=== PATIENT | female | born 1955 | race Caucasian/White ===

== ENCOUNTER → 2017-01-10 | Outpatient (CLI) | payer MEDICARE ==
--- NOTE | 2017-01-10 10:36 | XR ---
EXAMINATION TYPE: XR lumbar spine with bend/flex , 5 VIEWS DATE OF EXAM ORDERED: 01/10/2017 HISTORY: M54.5 low back pain. COMPARISON: None. FINDINGS: There is a moderate dextroscoliosis. Vertebral body height and alignment are maintained. There is no spondylolysis or spondylolisthesis. T here is disc space loss and hypertrophic spondylosis at L5-S1. The pedicles are intact. There is mild facet arthropathy at L5-S1. IMPRESSION: 1. NO ACUTE OSSEOUS LESION. 2. MODERATE DEXTROSCOLIOSIS. 3. DEGENERATIVE CHANGE.
[2017-01-10 10:49] LABS: Calcium 9.3 mg/dL (8.4-10.2)
[2017-01-10 12:24] LABS: Hemoglobin A1C 5.5 % (4.2-6.1)
[2017-01-12 05:03] LABS: Vitamin E (Alpha Tocopherol) 1688 ug/dL (500-1800)
== END | disposition home or self-care (01) ==
LOC: LABWHC1 09:26
PROVIDERS: ATTEND Psychiatry & Neurology Pain Medicine
DX: M47.816 Spondylosis without myelopathy or radiculopathy, lumbar region (principal); M41.9 Scoliosis, unspecified; G89.4 Chronic pain syndrome; I63.9 Cerebral infarction, unspecified; Z79.899 Other long term (current) drug therapy
CPT/HCPCS: 36415; 72114; 82306; 82310; 82550; 83036; 83519; 83735; 84207; 84425; 84446; 84590; 84591; 84597

== ENCOUNTER → 2017-03-27 | Outpatient (CLI) | payer MEDICARE | LOC: LABWHC1 12:03 | PROVIDERS: ATTEND Psychiatry & Neurology Pain Medicine | DX: Z01.810 Encounter for preprocedural cardiovascular examination (principal) | CPT/HCPCS: 36415; 93005 ==

== ENCOUNTER 2018-03-14 11:55 | Inpatient (IN) | payer MEDICARE ==
[2018-03-14 12:55] LABS: Basophils % (A) 0 %; Eosinophils # (A) 0.1 k/uL (0-0.7); Eosinophils % (A) 1 %; HCT 49.5 % (34.0-46.0); HGB 16.2 gm/dL (11.4-16.0); Lymphocytes # (A) 0.9 k/uL (1.0-4.8); Lymphocytes % (A) 10 %; MCH 28.4 pg (25.0-35.0); MCHC 32.8 g/dL (31.0-37.0); MCV 86.6 fL (80.0-100.0); Mean Platelet Volume 6.8; Monocytes # (A) 0.5 k/uL (0-1.0); Monocytes % (A) 6 %; Neutrophils # (A) 6.8 k/uL (1.3-7.7); Neutrophils % (A) 82 %; Platelet Count 228 k/uL (150-450); RBC 5.71 m/uL (3.80-5.40); RDW 13.9 % (11.5-15.5); WBC 8.3 k/uL (3.8-10.6)
[2018-03-14 13:11] LABS: ALT 23 U/L (9-52); AST 48 U/L (14-36); Albumin 4.4 g/dL (3.5-5.0); Alkaline Phosphatase 118 U/L (38-126); Amylase 48 U/L (30-110); Anion Gap 16 mmol/L; Blood Urea Nitrogen 21 mg/dL (7-17); Calcium 10.3 mg/dL (8.4-10.2); Carbon Dioxide 25 mmol/L (22-30); Chloride 100 mmol/L (98-107); Glucose 106 mg/dL (74-99); Lipase 55 U/L (23-300); Potassium 3.7 mmol/L (3.5-5.1); Sodium 141 mmol/L (137-145); Total Bilirubin 1.1 mg/dL (0.2-1.3); Total Protein 7.4 g/dL (6.3-8.2)
[2018-03-14] MEDS ORDERED: SODIUM CHLORIDE 0.9% 1,000 ML IV STA ×2 (14:08)
[2018-03-14] MEDS ORDERED: ONDANSETRON 4 MG/2 ML VIAL IVP STA (14:08)
[2018-03-14] MEDS ORDERED: MAG HYDROX/AL HYDROX/SIMETH 30 ML, HYOSCYAMINE ELIXIR 10 ML, CIMETIDINE HCL 300 MG, LID... PO STA ×4 (14:09)
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
--- NOTE | 2018-03-14 15:17 | XR ---
EXAMINATION TYPE: XR chest 2V DATE OF EXAM: 03/14/2018 COMPARISON: 06/04/2012 HISTORY: Shortness of breath TECHNIQUE: Frontal and lateral views of the chest are obtained. FINDINGS: Scattered senescent parenchymal changes noted. Hyperinflation compatible with COPD. No evidence for infiltrate. No evidence for atelectasis. Heart size is stable. Mediastinal structures are stable and grossly unremarkable. No evidence for hilar prominence. Degenerative changes dorsal spine. IMPRESSION: 1. No evidence for acute pulmonary disease.
--- NOTE | 2018-03-14 15:19 | XR ---
EXAMINATION TYPE: XR KUB DATE OF EXAM: 03/14/2018 COMPARISON: NONE HISTORY: Pain TECHNIQUE: One view abdominal series FINDINGS: The osseous structures are intact. The bowel gas pattern is nonspecific. Lung bases are clear. There is arthropathy of the hips. There are 2 metallic screws overlying the pelvis which likely are p ostsurgical but should be confirmed with surgical history. Curvature the spine with hypertrophic and degenerative changes. Vascular calcifications in the pelvis noted. IMPRESSION: 1. Nonspecific abdomen. 2. 2 large metallic screws are seen overlying the pelvic bones likely postsurgical correlate with the patient's surgical history for confirmation.
[2018-03-14 16:10] LABS: Partial Thromboplastin Time 22.9 sec (22.0-30.0)
[2018-03-14 16:14] LABS: Creatine Kinase MB 13.1 ng/mL (0.0-2.4)
[2018-03-14] MEDS ORDERED: NALOXONE 0.4 MG/ML 1 ML VIAL IV PRN ×2 (17:14→17:20)
[2018-03-14] MEDS ORDERED: MORPHINE SULFATE 4 MG/ML SYRINGE IV PRN (17:14)
[2018-03-14] MEDS ORDERED: IBUPROFEN 400 MG TAB PO PRN (17:14)
[2018-03-14] MEDS ORDERED: ACETAMINOPHEN TAB 325 MG TAB PO PRN (17:14)
[2018-03-14] MEDS ORDERED: traMADol 50 MG TAB PO PRN (17:14)
[2018-03-14] MEDS ORDERED: ACETAMINOPHEN TAB 500 MG TAB PO PRN (17:17)
[2018-03-14] MEDS ORDERED: NON-FORMULARY DRUG (Alendronate Sodium [Alendronate Sodium] 70 MG) PO SCH (17:30)
[2018-03-14] MEDS ORDERED: MECLIZINE 12.5 MG TAB PO PRN (17:43)
[2018-03-14] MEDS: SODIUM CHLORIDE 0.9% 1,000 ML IV SCH (18:13)
[2018-03-14 20:07] VITALS: BMI 27.3
[2018-03-14] MEDS: BACLOFEN 10 MG TAB PO SCH (20:15)
[2018-03-14] MEDS: KETOROLAC 30 MG/ML 1 ML VIAL IVP PRN (20:18)
[2018-03-14] MEDS: ONDANSETRON 4 MG/2 ML VIAL IVP PRN (21:38)
[2018-03-14] MEDS: LIDOCAINE VISCOUS 2% 15 ML CUP MUCOUS MEM PRN (21:58)
[2018-03-14] MEDS: ATORVASTATIN 40 MG TAB PO SCH (23:09)
[2018-03-14] MEDS: DOXAZOSIN 2 MG TAB PO SCH (23:24)
[2018-03-15] MEDS: BACLOFEN 10 MG TAB PO SCH ×3 (02:08→17:18)
[2018-03-15 02:40] LABS: Appearance,Urine Clear (Clear); Bilirubin,Urine Negative (Negative); Blood,Urine Negative (Negative); Color,Urine Yellow; Glucose,Urine (UA) Negative (Negative); Ketones,Urine 2+ (Negative); Leukocyte Esterase,Urine Negative (Negative); Nitrite,Urine Negative (Negative); Protein,Urine Trace (Negative); Specific Gravity,Urine 1.022 (1.001-1.035); Urobilinogen,Urine <2.0 mg/dL (<2.0)
[2018-03-15] MEDS: ONDANSETRON 4 MG/2 ML VIAL IVP PRN (04:23)
[2018-03-15] MEDS: KETOROLAC 30 MG/ML 1 ML VIAL IVP PRN (04:23)
[2018-03-15] MEDS: SODIUM CHLORIDE 0.9% 1,000 ML IV SCH ×2 (04:27→17:20)
[2018-03-15] MEDS ORDERED: PROCHLORPERAZINE 10 MG TAB PO PRN (08:48)
[2018-03-15] MEDS ORDERED: METOPROLOL TARTRATE 50 MG TAB PO SCH (09:00)
[2018-03-15] MEDS ORDERED: FAMOTIDINE 20 MG TAB PO SCH (09:00)
[2018-03-15] MEDS ORDERED: PANTOPRAZOLE 40 MG/10 ML VIAL IV SCH (09:00)
[2018-03-15] MEDS ORDERED: IOPAMIDOL-300 CONTRAST 30 ML VIAL (ORAL USE) PO PRN (09:08)
[2018-03-15 09:14] LABS: Basophils % (A) 0 %; Eosinophils # (A) 0.1 k/uL (0-0.7); Eosinophils % (A) 1 %; HCT 37.2 % (34.0-46.0); Lymphocytes # (A) 1.5 k/uL (1.0-4.8); Lymphocytes % (A) 23 %; MCH 29.5 pg (25.0-35.0); MCHC 33.5 g/dL (31.0-37.0); MCV 88.3 fL (80.0-100.0); Mean Platelet Volume 8.6; Monocytes # (A) 0.6 k/uL (0-1.0); Monocytes % (A) 9 %; Neutrophils # (A) 4.3 k/uL (1.3-7.7); Neutrophils % (A) 65 %; Platelet Count 157 k/uL (150-450); RBC 4.21 m/uL (3.80-5.40); WBC 6.6 k/uL (3.8-10.6)
[2018-03-15 09:18] LABS: ALT 12 U/L (9-52); AST 47 U/L (14-36); Albumin 2.9 g/dL (3.5-5.0); Alkaline Phosphatase 84 U/L (38-126); Anion Gap 12 mmol/L; Blood Urea Nitrogen 16 mg/dL (7-17); Calcium 8.6 mg/dL (8.4-10.2); Carbon Dioxide 20 mmol/L (22-30); Chloride 107 mmol/L (98-107); Glucose 78 mg/dL (74-99); Magnesium 1.8 mg/dL (1.6-2.3); Sodium 139 mmol/L (137-145); Total Bilirubin 0.8 mg/dL (0.2-1.3); Total Protein 5.5 g/dL (6.3-8.2)
[2018-03-15 09:23] LABS: Potassium 3.8 mmol/L (3.5-5.1)
[2018-03-15 09:25] LABS: HGB 12.4 gm/dL (11.4-16.0)
[2018-03-15] MEDS ORDERED: methylPREDNISolone SOD SUCCI 125 MG/2 ML VIAL IV STA (09:27)
[2018-03-15] MEDS ORDERED: diphenhydrAMINE 50 MG/ML 1 ML VIAL IVP PRN (09:28)
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
[2018-03-15] MEDS: PROCHLORPERAZINE SUPPOSITORY 25 MG SUPP RECTAL PRN (10:07)
[2018-03-15 10:27] LABS: Amylase 33 U/L (30-110); Lipase 46 U/L (23-300)
--- NOTE | 2018-03-15 10:45 | ECHOF ---
Referral Reason:chest pain MEASUREMENTS -------- HEIGHT: 170.2 cm WEIGHT: 64.4 kg BP: IVSd: 1.1 cm (0.6 - 1.1) LVIDd: 4.3 cm (3.9 - 5.3) LVPWd: 1.1 cm (0.6 - 1.1) IVSs: 1.3 cm LVIDs: 2.8 cm LVPWs: 1.3 cm Ao Diam: 3.0 cm (2.0 - 3.7) AV Cusp: 1.9 cm (1.5 - 2.6) LA Diam: 2.5 cm (2.7 - 3.8) MV EXCURSION: 22.213 mm (> 18.000) MV EF SLOPE: 60 mm/s (70 - 150) EPSS: 1.2 cm MV E Joseph: 1.05 m/s MV DecT: 135 ms MV A Joseph: 0.90 m/s MV E/A Ratio: 1.17 AV maxP.32 mmHg AV meanP.21 mmHg RAP: 5.00 mmHg RVSP: 34.93 mmHg FINDINGS -------- Sinus rhythm. This was a technically good study. The left ventricular size is normal. Left ventricular wall thickness is normal. Left ventricular systolic function is hyperdynamic with an estimated EF of >70%. Hemant with a LVOT obstruction with a gradient of 107mmHg. The right ventricle is normal in size and function. The left atrium is normal in size. The right atrium is normal in size. The aortic valve is trileaflet and appears structurally normal. Peak/mean gradient across the Aorti c Valve is 66.32mmHg / 41.21mmHg. Moderate mitral regurgitation is present. Mild tricuspid regurgitation present. The right ventricular systolic pressure, as measured by Doppl er, is 34.93mmHg. Pulmonic valve appears structurally normal. The aortic root size is normal. Normal inferior vena cava with normal inspiratory collapse consistent with estimated right atrial pre ssure of 5 mmHg. The pericardium is normal. CONCLUSIONS -------- 1. Sinus rhythm. 2. This was a technically good study. 3. The left ventricular size is normal. 4. Left ventricular wall thickness is normal. 5. Left ventricular systolic function is hyperdynamic with an estimated EF of >70%. 6. Hemant with a LVOT obstruction with a gradient of 107mmHg. 7. The right ventricle is normal in size and function. 8. The left atrium is normal in size. 9. The right atrium is normal in size. 10. The aortic valve is trileaflet and appears structurally normal. 11. Peak/mean gradient across the Aortic Valve is 66.32mmHg / 41.21mmHg. 12. Moderate mitral regurgitation is present. 13. Mild tricuspid regurgitation present. 14. The right ventricular systolic pressure, as measured by Doppler, is 34.93mmHg. 15. Pulmonic valve appears structurally normal. 16. The aortic root size is normal. 17. Normal inferior vena cava with normal inspiratory collapse consistent with estimated right atrial pressure of 5 mmHg. 18. The pericardium is normal. COLON THERAPIST: Latha Redmond RDCS
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
[2018-03-15] MEDS: ASCORBIC ACID 500 MG TAB PO SCH (12:08)
[2018-03-15] MEDS: LISINOPRIL 5 MG TAB PO SCH (12:09)
[2018-03-15] MEDS: MELOXICAM 7.5 MG TAB PO SCH (12:09)
[2018-03-15] MEDS: NORTRIPTYLINE 25 MG CAP PO SCH (12:10)
[2018-03-15] MEDS: METOPROLOL TARTRATE 50 MG TAB PO SCH ×2 (12:11→20:28)
[2018-03-15] MEDS: MOVANTIK 25MG PO SCH (12:46)
[2018-03-15] MEDS: LIDOCAINE VISCOUS 2% 15 ML CUP MUCOUS MEM PRN (12:59)
[2018-03-15] MEDS: NYSTATIN 100,000 UNIT/ML SUSP 500,000 UNIT/5 ML CUP PO SCH ×3 (12:59→20:28)
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
[2018-03-15] MEDS: MAG HYDROX/AL HYDROX/SIMETH 30 ML, HYOSCYAMINE ELIXIR 10 ML, CIMETIDINE HCL 300 MG, LID... PO SCH ×12 (14:00→21:46)
[2018-03-15] MEDS ORDERED: FLUCONAZOLE 100 MG TAB PO ONE (18:01)
[2018-03-15] MEDS: ATORVASTATIN 40 MG TAB PO SCH (20:26)
[2018-03-15] MEDS: DOXAZOSIN 2 MG TAB PO SCH (20:27)
[2018-03-15] MEDS ORDERED: METOPROLOL TARTRATE 25 MG TAB PO SCH (21:11)
[2018-03-15] MEDS: METOPROLOL TARTRATE 25 MG TAB PO SCH (21:44)
[2018-03-16] MEDS: SODIUM CHLORIDE 0.9% 1,000 ML IV SCH ×3 (03:19→21:23)
[2018-03-16] MEDS: BACLOFEN 10 MG TAB PO SCH ×3 (03:20→18:01)
[2018-03-16] MEDS: PANTOPRAZOLE 40 MG TABLET PO SCH (06:12)
[2018-03-16 06:44] LABS: Basophils % (A) 0 %; Eosinophils % (A) 1 %; HCT 37.9 % (34.0-46.0); HGB 11.8 gm/dL (11.4-16.0); Hypochromasia Slight; Lymphocytes # (A) 0.6 k/uL (1.0-4.8); Lymphocytes % (A) 10 %; MCH 28.8 pg (25.0-35.0); MCHC 31.1 g/dL (31.0-37.0); MCV 92.5 fL (80.0-100.0); Mean Platelet Volume 8.6; Monocytes # (A) 0.2 k/uL (0-1.0); Monocytes % (A) 2 %; Neutrophils # (A) 5.4 k/uL (1.3-7.7); Neutrophils % (A) 86 %; Platelet Count 135 k/uL (150-450); RDW 13.9 % (11.5-15.5); WBC 6.3 k/uL (3.8-10.6)
[2018-03-16 06:51] LABS: Albumin 2.6 g/dL (3.5-5.0); Anion Gap 8 mmol/L; Calcium 8.7 mg/dL (8.4-10.2); Carbon Dioxide 18 mmol/L (22-30); Chloride 110 mmol/L (98-107); Glucose 130 mg/dL (74-99); Sodium 136 mmol/L (137-145); Total Bilirubin 0.6 mg/dL (0.2-1.3); Total Protein 5.2 g/dL (6.3-8.2)
[2018-03-16 07:10] LABS: ALT 18 U/L (9-52); AST 32 U/L (14-36); Alkaline Phosphatase 63 U/L (38-126); Blood Urea Nitrogen 17 mg/dL (7-17); Potassium 4.5 mmol/L (3.5-5.1)
[2018-03-16] MEDS: LISINOPRIL 5 MG TAB PO SCH (08:44)
[2018-03-16] MEDS: MELOXICAM 7.5 MG TAB PO SCH (08:44)
[2018-03-16] MEDS: METOPROLOL TARTRATE 25 MG TAB PO SCH ×2 (08:47→21:24)
[2018-03-16] MEDS: MOVANTIK 25MG PO SCH (08:48)
[2018-03-16] MEDS: NYSTATIN 100,000 UNIT/ML SUSP 500,000 UNIT/5 ML CUP PO SCH ×4 (08:49→21:24)
[2018-03-16] MEDS: MAG HYDROX/AL HYDROX/SIMETH 30 ML, HYOSCYAMINE ELIXIR 10 ML, CIMETIDINE HCL 300 MG, LID... PO SCH ×12 (08:49→21:25)
[2018-03-16] MEDS: NORTRIPTYLINE 25 MG CAP PO SCH (08:51)
[2018-03-16] MEDS: ASCORBIC ACID 500 MG TAB PO SCH (08:56)
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
--- NOTE | 2018-03-16 11:30 | P.PN ---
Subjective Progress Note Date: 03/16/18 This is a 62-year-old female patient who presented to the hospital with nausea and vomiting and abdominal pain. The patient was found to have mildly elevated troponins but did not describe any chest discomfort. Patient does have history of hypertension and hyperlipidemia, no myocardial infarction in the past. She does not follow with the biotechnician on a regular basis. Echocardiogram showed hyperdynamic function with ejection fraction of 70%. Patient states she is feeling better today. EKG did not show any ischemic changes. She is hemodynamically stable. Denies any chest discomfort, shortness breath or palpitations. Her abdominal pain has subsided. Objective - Vital Signs Vital signs: Vital Signs Temp 97.3 F L 03/16/18 03:18 Pulse 57 L 03/16/18 03:18 Resp 18 03/16/18 03:18 BP 115/60 03/16/18 03:18 Pulse Ox 96 03/16/18 03:18 Intake & Output 03/15/18 03/16/18 03/16/18 18:59 06:59 18:59 Intake Total 120 2150 Output Total 300 650 Balance -180 1500 Weight 65.4 kg Intake: IV 1200 Sodium Chloride 0.9% 1, 1200 000 ml @ 100 mls/hr IV . Q10H STA Rx#:[id number] Intake, IV Titration 950 Amount Sodium Chloride 0.9% 1, 900 000 ml @ 100 mls/hr IV . Q10H SUKUMAR Rx#:[id number] cefTRIAXone 1,000 mg In 50 Sodium Chloride 0.9% 50 ml @ 100 mls/hr IVPB Q24HR SUKUMAR Rx#:[id number] Oral 120 Output: Urine 300 650 Straight 650 Other: Voiding Method Indwelling Catheter Indwelling Catheter - Constitutional General appearance: Present: average body habitus - EENT Eyes: Present: normal appearance ENT: Present: hearing grossly normal - Respiratory Respiratory: bilateral: CTA - Cardiovascular Rhythm: regular - Peripheral edema leg Peripheral Edema: bilateral: None - Gastrointestinal General gastrointestinal: Present: normal bowel sounds - Psychiatric Psychiatric: Present: A&O x's 3 - Labs CBC & Chem 7: 03/16/18 05:55 03/16/18 05:55 Labs: Abnormal Lab Results - Last 24 Hours (Table) 03/16/18 03/16/18 Range/Units 05:55 05:55 Plt Count 135 L (150-450) k/uL Lymphocytes # 0.6 L (1.0-4.8) k/uL Sodium 136 L (137-145) mmol/L Chloride 110 H (98-107) mmol/L Carbon Dioxide 18 L (22-30) mmol/L Glucose 130 H (74-99) mg/dL Total Protein 5.2 L (6.3-8.2) g/dL Albumin 2.6 L (3.5-5.0) g/dL Assessment and Plan Assessment: Elevated troponin, hospital type II [place] Abdominal pain with nausea and vomiting Hypertension Hyperlipidemia Plan: Echocardiogram showed hyperdynamic left ventricular systolic function with ejection fraction of 70%. Patient continues to deny any chest discomfort. Abdominal discomfort has resolved. She's been evaluated by gastroenterology and is being treated for gastroenteritis. Continue with current cardiac medications including Lipitor, lisinopril and Lopressor. From a cardiac standpoint, no further recommendations at this time. Patient may benefit from stress testing and further cardiac evaluation as an outpatient. We will continue to monitor her closely.
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
[2018-03-16] MEDS: ATORVASTATIN 40 MG TAB PO SCH (21:23)
[2018-03-16] MEDS: DOXAZOSIN 2 MG TAB PO SCH (21:24)
[2018-03-17] MEDS: BACLOFEN 10 MG TAB PO SCH ×4 (02:07→20:20)
[2018-03-17] MEDS: SODIUM CHLORIDE 0.9% 1,000 ML IV SCH ×3 (05:49→23:44)
[2018-03-17 05:59] LABS: ALT 20 U/L (9-52); AST 26 U/L (14-36); Alkaline Phosphatase 70 U/L (38-126); Anion Gap 7 mmol/L; Blood Urea Nitrogen 20 mg/dL (7-17); Carbon Dioxide 24 mmol/L (22-30); Chloride 109 mmol/L (98-107); Glucose 118 mg/dL (74-99); Potassium 4.1 mmol/L (3.5-5.1); Sodium 140 mmol/L (137-145); Total Bilirubin 0.3 mg/dL (0.2-1.3); Total Protein 5.4 g/dL (6.3-8.2)
[2018-03-17] MEDS: PANTOPRAZOLE 40 MG TABLET PO SCH (06:26)
[2018-03-17 07:18] LABS: Basophils % (A) 0 %; Eosinophils % (A) 0 %; HCT 38.2 % (34.0-46.0); HGB 12.1 gm/dL (11.4-16.0); Lymphocytes # (A) 0.6 k/uL (1.0-4.8); Lymphocytes % (A) 5 %; MCH 28.6 pg (25.0-35.0); MCHC 31.6 g/dL (31.0-37.0); MCV 90.5 fL (80.0-100.0); Mean Platelet Volume 7.9; Monocytes # (A) 0.6 k/uL (0-1.0); Monocytes % (A) 5 %; Neutrophils # (A) 9.9 k/uL (1.3-7.7); Neutrophils % (A) 89 %; Platelet Count 167 k/uL (150-450); RBC 4.22 m/uL (3.80-5.40); RDW 14.2 % (11.5-15.5); WBC 11.2 k/uL (3.8-10.6)
[2018-03-17] MEDS: NYSTATIN 100,000 UNIT/ML SUSP 500,000 UNIT/5 ML CUP PO SCH ×4 (09:24→20:18)
[2018-03-17] MEDS: MAG HYDROX/AL HYDROX/SIMETH 30 ML, HYOSCYAMINE ELIXIR 10 ML, CIMETIDINE HCL 300 MG, LID... PO SCH ×12 (09:24→20:19)
[2018-03-17] MEDS: ASCORBIC ACID 500 MG TAB PO SCH (09:25)
[2018-03-17] MEDS: LISINOPRIL 5 MG TAB PO SCH (09:25)
[2018-03-17] MEDS: NORTRIPTYLINE 25 MG CAP PO SCH (09:25)
[2018-03-17] MEDS: MELOXICAM 7.5 MG TAB PO SCH (09:25)
[2018-03-17] MEDS: METOPROLOL TARTRATE 25 MG TAB PO SCH ×2 (09:26→20:19)
[2018-03-17 10:47] VITALS: RESP 18
--- NOTE | 2018-03-17 11:57 | P.PN ---
Subjective Progress Note Date: 03/17/18 This is a 62-year-old female patient who presented to the hospital with nausea and vomiting and abdominal pain. The patient was found to have mildly elevated troponins but did not describe any chest discomfort. Patient does have history of hypertension and hyperlipidemia, no myocardial infarction in the past. She does not follow with the glacing machine tender on a regular basis. Echocardiogram showed hyperdynamic function with ejection fraction of 70%. Patient states she is feeling better today. EKG did not show any ischemic changes. She is hemodynamically stable. Denies any chest discomfort, shortness breath or palpitations. Her abdominal pain has subsided. 03/17/2018. Patient is doing well. Denies any chest discomfort, shortness breath or palpitations. Abdominal pain has resolved. She is hemodynamically stable. Remains in normal sinus mechanism on the monitor. Objective - Vital Signs Vital signs: Vital Signs Temp 96.6 F L 03/17/18 08:00 Pulse 74 03/17/18 08:00 Resp 18 03/17/18 08:00 BP 174/70 03/17/18 08:00 Pulse Ox 99 03/17/18 08:00 Intake & Output 03/16/18 03/17/18 03/17/18 18:59 06:59 18:59 Intake Total 462 600 240 Output Total 950 617 200 Balance -488 -17 40 Weight 62 kg Intake: Intake, IV Titration 600 Amount Sodium Chloride 0.9% 1, 600 000 ml @ 100 mls/hr IV . Q10H SUKUMAR Rx#:[id number] Oral 462 240 Output: Urine 950 600 200 Straight 225 Post Void Residual 17 Other: Voiding Method Indwelling Catheter Toilet Toilet # Voids 1 - Exam GENERAL EXAM: Patient is alert and oriented and doesn't appear to be in any acute distress HEENT: Normocephalic. Normal reaction of pupils, equal size, normal range of extraocular motion. No erythema or exudates in the throat. NECK: No masses, no nuchal rigidity. CHEST: No chest wall deformity. LUNGS: Equal air entry with no crackles or wheeze. HEART: S1 and S2 normal with no audible mumurs or gallops. Regular rhythm, femorals equal on both sides.. ABDOMEN: No hepatosplenomegaly, normal bowel sounds, no guarding or rigidity. SKIN: No rashes CENTRAL NERVOUS SYSTEM: No focal deficits. EXTREMITIES: No cyanosis, clubbing or edema. - Labs CBC & Chem 7: 03/17/18 05:26 03/17/18 05:26 Labs: Abnormal Lab Results - Last 24 Hours (Table) 03/17/18 03/17/18 Range/Units 05:26 05:26 WBC 11.2 H (3.8-10.6) k/uL Neutrophils # 9.9 H (1.3-7.7) k/uL Lymphocytes # 0.6 L (1.0-4.8) k/uL Chloride 109 H (98-107) mmol/L BUN 20 H (7-17) mg/dL Glucose 118 H (74-99) mg/dL Total Protein 5.4 L (6.3-8.2) g/dL Albumin 3.0 L (3.5-5.0) g/dL Microbiology - Last 24 Hours (Table) 03/14/18 21:45 Throat Culture - Preliminary Throat Assessment and Plan Assessment: Elevated troponin, hospital type II [place] Abdominal pain with nausea and vomiting Hypertension Hyperlipidemia Plan: Continue with current medication regimen. No further recommendations at this time. Patient may be discharged home and she is medically stable. She may benefit from stress testing and further cardiac evaluation as an outpatient. She can follow up with Dr.VC Salinas in 2 weeks. ELECTRIC FURNACE OPERATOR note has been reviewed, I agree with the documented findings and plan of care. Patient was seen and examined.
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
[2018-03-17] MEDS: MOVANTIK 25MG PO SCH (16:54)
[2018-03-17 17:06] LABS: Appearance,Urine Clear (Clear); Bilirubin,Urine Negative (Negative); Blood,Urine Negative (Negative); Color,Urine Light Yellow; Glucose,Urine (UA) Negative (Negative); Ketones,Urine Negative (Negative); Leukocyte Esterase,Urine Negative (Negative); Nitrite,Urine Negative (Negative); PH, Urine 6.5 (5.0-8.0); Protein,Urine Negative (Negative); Specific Gravity,Urine 1.009 (1.001-1.035); Urobilinogen,Urine <2.0 mg/dL (<2.0)
[2018-03-17] MEDS: DOXAZOSIN 2 MG TAB PO SCH (20:19)
[2018-03-17] MEDS: ATORVASTATIN 40 MG TAB PO SCH (20:20)
[2018-03-18 06:01] LABS: Basophils % (A) 0 %; Eosinophils % (A) 1 %; HCT 33.8 % (34.0-46.0); HGB 10.9 gm/dL (11.4-16.0); Lymphocytes # (A) 1.7 k/uL (1.0-4.8); Lymphocytes % (A) 26 %; MCH 28.3 pg (25.0-35.0); MCHC 32.2 g/dL (31.0-37.0); MCV 87.9 fL (80.0-100.0); Monocytes # (A) 0.4 k/uL (0-1.0); Monocytes % (A) 6 %; Neutrophils # (A) 4.3 k/uL (1.3-7.7); Neutrophils % (A) 67 %; Platelet Count 162 k/uL (150-450); RBC 3.85 m/uL (3.80-5.40); RDW 14.3 % (11.5-15.5); WBC 6.4 k/uL (3.8-10.6)
[2018-03-18 06:17] LABS: Albumin 2.6 g/dL (3.5-5.0); Blood Urea Nitrogen 15 mg/dL (7-17); Calcium 8.6 mg/dL (8.4-10.2); Chloride 113 mmol/L (98-107); Potassium 3.9 mmol/L (3.5-5.1); Sodium 142 mmol/L (137-145); Total Bilirubin 0.2 mg/dL (0.2-1.3)
[2018-03-18 06:40] LABS: ALT 24 U/L (9-52); AST 24 U/L (14-36); Alkaline Phosphatase 66 U/L (38-126); Anion Gap 7 mmol/L; Carbon Dioxide 22 mmol/L (22-30); Glucose 87 mg/dL (74-99)
[2018-03-18] MEDS: PANTOPRAZOLE 40 MG TABLET PO SCH (06:40)
[2018-03-18 08:15] VITALS: BP 151/74; PULSE 64; TEMP 96.7
[2018-03-18] MEDS: MAG HYDROX/AL HYDROX/SIMETH 30 ML, HYOSCYAMINE ELIXIR 10 ML, CIMETIDINE HCL 300 MG, LID... PO SCH ×4 (08:28)
[2018-03-18] MEDS: NYSTATIN 100,000 UNIT/ML SUSP 500,000 UNIT/5 ML CUP PO SCH (08:28)
[2018-03-18] MEDS: LISINOPRIL 5 MG TAB PO SCH (08:29)
[2018-03-18] MEDS: ASCORBIC ACID 500 MG TAB PO SCH (08:29)
[2018-03-18] MEDS: BACLOFEN 10 MG TAB PO SCH (08:29)
[2018-03-18] MEDS: METOPROLOL TARTRATE 25 MG TAB PO SCH (08:29)
[2018-03-18] MEDS: MELOXICAM 7.5 MG TAB PO SCH (08:30)
[2018-03-18] MEDS: NORTRIPTYLINE 25 MG CAP PO SCH (08:46)
[2018-03-18] MEDS: MOVANTIK 25MG PO SCH (09:38)
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
--- NOTE | 2018-03-18 11:20 | P.PN ---
Subjective Progress Note Date: 03/18/18 Principal diagnosis: Nausea, vomiting, abdominal pain Patient feeling better overall. She is tolerating her diet with no nausea and vomiting. She has not had a bowel movement since being admitted however reports she feels this is secondary to a decrease in her oral intake and would not like any laxatives at this time. Objective - Vital Signs Vital signs: Vital Signs Temp 96.7 F L 03/18/18 08:00 Pulse 64 03/18/18 08:00 Resp 18 03/18/18 08:00 BP 151/74 03/18/18 08:00 Pulse Ox 96 03/18/18 08:00 Intake & Output 03/17/18 03/18/18 03/18/18 18:59 06:59 18:59 Intake Total 702 240 Output Total 800 Balance -98 240 Weight 78.4 kg Intake: Oral 702 240 Output: Urine 800 Other: Voiding Method Toilet Toilet Toilet # Voids 1 2 - Exam Constitutional: Lying in bed in no apparent distress Head: normocephalic Eyes: No icterus, no injection Mouth: Moist mucous membranes Nose: No discharge noted Neck: Trachea midline Lungs: Normal air entry in all lung murdock, no wheezing appreciated Abdomen: Soft, nontender, nondistended, normal bowel sounds. No guarding or rigidity Skin: No rashes, no jaundice Neuro: Awake alert and oriented, no focal deficits - Labs CBC & Chem 7: 03/18/18 05:24 03/18/18 05:24 Labs: Abnormal Lab Results - Last 24 Hours (Table) 03/18/18 03/18/18 Range/Units 05:24 05:24 Hgb 10.9 L (11.4-16.0) gm/dL Hct 33.8 L (34.0-46.0) % Chloride 113 H (98-107) mmol/L Total Protein 5.0 L (6.3-8.2) g/dL Albumin 2.6 L (3.5-5.0) g/dL Microbiology - Last 24 Hours (Table) 03/17/18 13:02 Urine Culture - Preliminary Urine,Clean Catch 03/14/18 21:45 Throat Culture - Final Throat Assessment and Plan (1) Nausea & vomiting Narrative/Plan: Patient presenting with intractable nausea and vomiting with an associated decrease in oral intake. It is unclear what the exact etiology of her symptoms were. It may be due to decreased motility in the setting of narcotic use, viral gastroenteritis, or other etiology. Currently the patient is reporting feeling improved and is tolerating her diet. Current Visit: Yes Status: Acute Code(s): R11.2 - NAUSEA WITH VOMITING, UNSPECIFIED SNOMED Code(s): 88057861 (2) Abdominal pain Narrative/Plan: Secondary to above, resolved. Current Visit: Yes Status: Acute Code(s): R10.9 - UNSPECIFIED ABDOMINAL PAIN SNOMED Code(s): 51670334 (3) Constipation due to opioid therapy Narrative/Plan: Patient suffers from chronic constipation likely secondary to her narcotic gives as she is on daily fentanyl. She has not had a bowel movement since admission, however reports having multiple bowel movements prior to being admitted after using Movantik. Current Visit: Yes Status: Acute Code(s): K59.03 - DRUG INDUCED CONSTIPATION ; T40.2X5A - ADVERSE EFFECT OF OTHER OPIOIDS, INITIAL ENCOUNTER SNOMED Code(s) : 996897092127297 Plan: Supportive care Okay for diet Symptomatic treatment of nausea Patient not interested in laxative therapy at this time, reports having medications at home if needed Okay for discharge from GI standpoint Thank you for allowing us to participate in the care of this patient
--- NOTE | 2018-03-18 12:17 | P.PN ---
Subjective Progress Note Date: 03/18/18 This is a 62-year-old female patient who presented to the hospital with nausea , vomiting and abdominal pain, she also had significant sores in her mouth.. The patient was found to have elevated troponins but did not describe any chest discomfort. Patient does have history of hypertension and hyperlipidemia, no myocardial infarction in the past. She follows with Dr. Quijano in the office. Echocardiogram showed hyperdynamic function with ejection fraction of 70%. Patient states she is feeling better today. EKG did not show any ischemic changes. She is hemodynamically stable. Denies any chest discomfort, shortness breath or palpitations. Her abdominal pain has subsided. Dr. Medina did have a discussion with Dr. Quijano today regarding cardiac catheterization, Dr. Quijano wishes at this time to treat the patient medically, he will see her in the office and perform a stress test as an outpatient. Objective - Vital Signs Vital signs: Vital Signs Temp 96.7 F L 03/18/18 08:00 Pulse 64 03/18/18 08:00 Resp 18 03/18/18 08:00 BP 151/74 03/18/18 08:00 Pulse Ox 96 03/18/18 08:00 Intake & Output 03/17/18 03/18/18 03/18/18 18:59 06:59 18:59 Intake Total 702 240 Output Total 800 Balance -98 240 Weight 78.4 kg Intake: Oral 702 240 Output: Urine 800 Other: Voiding Method Toilet Toilet Toilet # Voids 1 2 - Exam PHYSICAL EXAMINATION: GENERAL: 62-year-old female in no acute distress at the time of my examination HEENT: Head is atraumatic, normocephalic. Pupils equal, round. Sclera anicteric. Conjunctiva are clear. Mucous membranes of the mouth are moist. Neck is supple. There is no elevated jugular venous pressure.] bruit is heard. HEART EXAMINATION: Heart S1, S2 normal. No murmur or gallop heard. CHEST EXAMINATION: Lungs are clear to auscultation and precussion. No chest wall tenderness is noted on palpation or with deep breathing. ABDOMEN: Soft, nontender. Bowel sounds are heard. No organomegaly noted. EXTREMITIES: 2+ peripheral pulses with no evidence of peripheral edema and no calf tenderness noted. NEUROLOGIC patient is awake, alert and oriented ?-3. . - Labs CBC & Chem 7: 03/18/18 05:24 03/18/18 05:24 Labs: Abnormal Lab Results - Last 24 Hours (Table) 03/18/18 03/18/18 Range/Units 05:24 05:24 Hgb 10.9 L (11.4-16.0) gm/dL Hct 33.8 L (34.0-46.0) % Chloride 113 H (98-107) mmol/L Total Protein 5.0 L (6.3-8.2) g/dL Albumin 2.6 L (3.5-5.0) g/dL Microbiology - Last 24 Hours (Table) 03/17/18 13:02 Urine Culture - Preliminary Urine,Clean Catch 03/14/18 21:45 Throat Culture - Final Throat Assessment and Plan Plan: Assessment and plan #1 symptoms of abdominal pain with associated nausea and vomiting #2 hypertension #3 abnormality in troponin suggesting possible non-Q-wave [place] #4 hyperlipidemia #5 mouth sores Plan From cardiology's perspective, Dr. Medina did have a discussion today with Dr. Quijano regarding proceeding with cardiac catheterization, the decision was made by Dr. Quijano to have the patient treated medically at this time, discharge her home, and perform stress testing as an outpatient. DNP note has been reviewed, I agree with a documented findings and plan of care. Patient was seen and examined.
[2018-03-18] MEDS: PROCHLORPERAZINE SUPPOSITORY 25 MG SUPP RECTAL PRN (13:06)
== END 2018-03-18 13:09 | disposition home health service (06) | DRG 391 ==
LOC: EC 11:55 → 6SEL 17:40 → 6ICU 03-15 22:28 → 6SEL 03-15 22:46
PROVIDERS: ADMIT Internal Medicine; ATTEND Internal Medicine
DX: K52.9 Noninfective gastroenteritis and colitis, unspecified (principal); I21.A1 Myocardial infarction type 2; G90.523 Complex regional pain syndrome I of lower limb, bilateral; I45.81 Long QT syndrome; R13.10 Dysphagia, unspecified; K59.03 Drug induced constipation; T40.2X5A Adverse effect of other opioids, initial encounter; M54.9 Dorsalgia, unspecified; S00.522A Blister (nonthermal) of oral cavity, initial encounter; I34.1 Nonrheumatic mitral (valve) prolapse; I10 Essential (primary) hypertension; I25.10 Atherosclerotic heart disease of native coronary artery without angina pectoris; J44.9 Chronic obstructive pulmonary disease, unspecified; I25.2 Old myocardial infarction; E78.5 Hyperlipidemia, unspecified; R33.9 Retention of urine, unspecified; Z79.1 Long term (current) use of non-steroidal anti-inflammatories (NSAID); Z79.83 Long term (current) use of bisphosphonates; Z79.899 Other long term (current) drug therapy; Z87.820 Personal history of traumatic brain injury; Z87.81 Personal history of (healed) traumatic fracture; Z90.710 Acquired absence of both cervix and uterus; Z87.891 Personal history of nicotine dependence; Z85.42 Personal history of malignant neoplasm of other parts of uterus; Z85.3 Personal history of malignant neoplasm of breast; Z91.02 Food additives allergy status; Z91.040 Latex allergy status; Z91.013 Allergy to seafood; Z88.8 Allergy status to other drugs, medicaments and biological substances; Z91.048 Other nonmedicinal substance allergy status
CPT/HCPCS: 36415; 71046; 71275; 74018; 74160; 80053; 81003; 82150; 82550; 82553; 83690; 83735; 84443; 84484; 85025; 85379; 85610; 85730; 87070; 87086; 93306; 96361; 96374; 99285

== ENCOUNTER → 2018-04-10 | Outpatient (CLI) | payer MEDICARE ==
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
== END ==
LOC: RADMRIMAIN 21:49
PROVIDERS: ATTEND Psychiatry & Neurology Pain Medicine
DX: G31.9 Degenerative disease of nervous system, unspecified (principal); R90.89 Other abnormal findings on diagnostic imaging of central nervous system; S32.9XXA Fracture of unspecified parts of lumbosacral spine and pelvis, initial encounter for closed fracture; Z91.040 Latex allergy status; Z88.8 Allergy status to other drugs, medicaments and biological substances
CPT/HCPCS: 70551

== ENCOUNTER 2018-05-10 07:42 | Day surgery (SDC) | payer MEDICARE ==
[2018-05-09 09:23] VITALS: BMI 23.5
[~2018-05-10 07:42] MED LIST: LACTATED RINGERS 1,000 ML IV SCH; LIDOCAINE 1% 20 ML VIAL (10MG/ML) FOR IV START INTRADERMA PRN
[2018-05-10 08:20] VITALS: TEMP 97
[2018-05-10] MEDS ORDERED: LIDOCAINE 1% INJ 10MG/ML (20 ML MDV) ONE (08:25)
[2018-05-10] MEDS ORDERED: PROPOFOL 10 MG/ML 20 ML VIAL IV ONE (08:25)
[2018-05-10 08:45] VITALS: RESP 16
--- NOTE | 2018-05-10 08:46 | P.PCN ---
Date of Procedure: 05/10/18 Procedure(s) Performed: BRIEF HISTORY: Patient is a 61-year-old, pleasant, female, scheduled for an upper endoscopy as a part of evaluation of intermittent dysphagia to solids and throat discomfort as well as odynophagia for the last few weeks duration. PROCEDURE PERFORMED: Esophagogastroduodenoscopy with biopsy. PREOPERATIVE DIAGNOSIS: Dysphagia/throat irritation and odynophagia. IV sedation per anesthesia. PROCEDURE: After informed consent was obtained, the patient was brought into the endoscopy unit. IV sedation was administered by Anesthesia under continuous monitoring. Initially the Olympus GIF-140 video endoscope was inserted into the mouth. Esophagus intubated without any difficulty. It was gradually advanced into the stomach and duodenum and carefully examined. The bulb and the second part of the duodenum appeared normal. The scope at this time was withdrawn to the stomach, adequately insufflated with air, and upon careful examination, mucosa of the antrum, and mild gastritis and biopsies were done from this area. body, cardia and the fundus appeared normal. The scope was then withdrawn into the esophagus. The GE junction was located at 39 cm from the incisors. The mucosa. The distal esophagus appeared thickened but no evidence of esophagitis and multiple biopsies were done from this area to rule out eosinophilic esophagitis. The esophagus appeared normal. There were no erosions or ulcerations seen and the patient tolerated the procedure well. IMPRESSION: 1. Thickened distal esophageal folds but no evidence of esophageal stricture, status post biopsy to rule out eosinophilic esophagitis. 2. Mild antral gastritis. RECOMMENDATIONS: The findings of this examination were discussed with the patient as a family. She was advised to follow with the biopsy results. She will continue with Zantac 150 milligrams twice daily and she'll be seen in office in 2 weeks.
[2018-05-10 09:08] VITALS: BP 161/83; PULSE 64
== END 2018-05-10 09:21 | disposition home or self-care (01) ==
LOC: ORWHC2ENDO 07:42
PROVIDERS: ATTEND Internal Medicine Gastroenterology
DX: K29.50 Unspecified chronic gastritis without bleeding (principal); K21.0 Gastro-esophageal reflux disease with esophagitis; I10 Essential (primary) hypertension; E78.5 Hyperlipidemia, unspecified; I25.10 Atherosclerotic heart disease of native coronary artery without angina pectoris; E07.9 Disorder of thyroid, unspecified; I25.2 Old myocardial infarction; Z79.1 Long term (current) use of non-steroidal anti-inflammatories (NSAID); Z79.899 Other long term (current) drug therapy; Z79.52 Long term (current) use of systemic steroids; Z87.891 Personal history of nicotine dependence; Z91.09 Other allergy status, other than to drugs and biological substances; Z88.8 Allergy status to other drugs, medicaments and biological substances; Z91.040 Latex allergy status; Z91.013 Allergy to seafood
CPT/HCPCS: 88305; 43239; J2001; J2704

== ENCOUNTER → 2019-11-27 | Outpatient (CLI) | payer MEDICARE ==
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
== END | disposition home or self-care (01) ==
LOC: RADCTMAIN 15:40
PROVIDERS: ATTEND Psychiatry & Neurology Neurology
DX: I77.0 Arteriovenous fistula, acquired (principal); H53.9 Unspecified visual disturbance; Z86.79 Personal history of other diseases of the circulatory system
CPT/HCPCS: 70450

== ENCOUNTER → 2020-12-31 | Outpatient (CLI) | payer MEDICARE ==
[2020-12-31 18:56] LABS: African American GFR (CKD) 90.3 (60.0-200.0); Non-African American GFR(CKD) 77.9 (60.0-200.0)
== END | disposition home or self-care (01) ==
LOC: LABWHC1 08:43
PROVIDERS: ATTEND Psychiatry & Neurology Neurology
DX: M51.36 Other intervertebral disc degeneration, lumbar region (principal); Z87.828 Personal history of other (healed) physical injury and trauma
CPT/HCPCS: 36415; 82565; 84520

== ENCOUNTER → 2020-12-31 | Outpatient (CLI) | payer MEDICARE ==
--- NOTE | 2021-01-04 09:11 | MM ---
Reason for exam: screening (asymptomatic). Last mammogram was performed 5 years and 7 months ago. History: Patient is postmenopausal, has history of endometrial cancer at age 37, and has history of breast cancer at age 21. Lumpectomy of the right breast, 1976. Took estrogen for 5 years. Physical Findings: A clinical breast exam by your physician is recommended on an annual basis and results should be correlated with mammographic findings. MG 3D Screening Mammo W/Cad Bilateral CC and MLO view(s) were taken. Prior study comparison: May 21, 2015, bilateral MG 3d diag mammo w/cad MARCELO. February 22, 2012, CAD bilateral diagnostic mammogram. The breast tissue is heterogeneously dense. This may lower the sensitivity of mammography. ASSESSMENT: Incomplete: need additional imaging evaluation, BI-RAD 0 RECOMMENDATION: Special view mammogram and ultrasound of the right breast. (palpable) [facility] will attempt to contact patient to return for supplemental views and ultrasound.
== END | disposition home or self-care (01) ==
LOC: RADMAMWWP 08:12
PROVIDERS: ATTEND Family Medicine
DX: Z12.31 Encounter for screening mammogram for malignant neoplasm of breast (principal); Z85.3 Personal history of malignant neoplasm of breast
CPT/HCPCS: 77063; 77067

== ENCOUNTER → 2021-01-07 | Outpatient (CLI) | payer MEDICARE ==
--- NOTE | 2021-01-07 14:31 | CT ---
EXAMINATION TYPE: CT abdomen pelvis w con DATE OF EXAM: 01/07/2021 COMPARISON: 03/15/2018 HISTORY: Low back and left hip pain. CT DLP: 761.3 mGycm Automated exposure control for dose reduction was used. CONTRAST: CT scan of the abdomen pelvis is performed with IV Contrast, patient injected with 100 mL of Isovue 3 00. FINDINGS- Lung bases are clear. Heart size is mildly prominent. Aorta of normal caliber. No evidence of aneurys m. Postsurgical changes noted involving the pelvic bones which results in artifact. Grossly the bowel ga s pattern is nonspecific with no obstruction. No inflammatory changes identified. No free fluid or fr ee air. Liver and spleen are homogeneous. There is a small accessory spleen. Increase has a normal appearance . No gallstones. Adrenal glands have a normal morphology. No hydronephrosis. Multilevel degenerative disc disease. IMPRESSION- 1. Postsurgical change involving the pelvis
--- NOTE | 2021-01-07 14:46 | CT ---
EXAMINATION TYPE: CT lumbar spine w con DATE OF EXAM: 01/07/2021 COMPARISON: HISTORY: Low back and left hip pain. CT DLP: 761.3 mGycm Automated exposure control for dose reduction was used. CONTRAST: CT scan of the lumbar is performed with IV Contrast, patient injected with 100 mL of Isovue 300. Enhanced CT of the lumbar spine was performed. Bone and soft tissue window settings are submitted as well as coronal and sagittal reconstructions. There is diffuse osteopenia and there is degenerative disc disease at all levels with severe changes at L4-5 and L5-S1. L1-L2: Normal disc space height. No disc herniation protrusion or central stenosis. No facet joint arthropathy. No evidence for foraminal encroachment. L2-L3: Normal disc space height. No disc herniation protrusion or central stenosis. No facet joint arthropathy. No evidence for foraminal encroachment. L3-L4: Mild hypertrophic change of the facets. There is circumferential disc bulging and mild effacem ent of thecal sac and mild bilateral foraminal encroachment. Borderline to mild central stenosis. L4-L5: Previous left hemilaminectomy with hypertrophic change of the facets. Appears to be narrowing of the neural foramina bilaterally with facet arthropathy. Moderate to severe degenerative disc disea se. L5-S1: Facet arthropathy and bilateral foraminal encroachment. No obvious canal stenosis or disc hua iation. Severe degenerative disc disease. There is a slight curvature of the spine. Postsurgical changes are noted involving the pelvis extendi ng across the iliac bone and sacrum. IMPRESSION: 1. Postsurgical changes with moderate to severe degenerative disc disease at L4-5 and L5-S1. Multilev el facet arthropathy as discussed above. 2. Circumferential disc bulging L3-L4 with hypertrophic facet arthropathy and borderline to mild abhinav l stenosis with foraminal encroachment 3. Multilevel foraminal encroachment as discussed above.
== END | disposition home or self-care (01) ==
LOC: RADCTMAIN 11:54
PROVIDERS: ATTEND Psychiatry & Neurology Neurology
DX: M51.36 Other intervertebral disc degeneration, lumbar region (principal); Z87.828 Personal history of other (healed) physical injury and trauma
CPT/HCPCS: 72132; 74177; Q9967

== ENCOUNTER → 2021-01-17 | Outpatient (CLI) | payer MEDICARE ==
--- NOTE | 2021-01-21 12:45 | USB ---
Reason for exam: additional evaluation requested from abnormal screening. History: Patient is postmenopausal, has history of endometrial cancer at age 37, and has history of breast cancer at age 21. Lumpectomy of the right breast, 1976. Took estrogen for 5 years. Physical Findings: Nurse did not find any significant physical abnormalities on exam. US Breast Workup RT Right complete breast ultrasound includes all four quadrants, the retroareolar region and axilla. Finding demonstrates no cystic or solid lesion seen. These results were verbally communicated with the patient and result sheet given to the patient on 01/17/21. ASSESSMENT: Incomplete: need additional imaging evaluation, BI-RAD 0 RECOMMENDATION: Special view mammogram of the right breast.
--- NOTE | 2021-01-21 12:47 | MM ---
Reason for exam: additional evaluation requested from abnormal screening. Last mammogram was performed 1 month ago. History: Patient is postmenopausal, has history of endometrial cancer at age 37, and has history of breast cancer at age 21. Lumpectomy of the right breast, 1976. Took estrogen for 5 years. Physical Findings: Nurse did not find any significant physical abnormalities on exam. MG 3D Work Up W/Cad RT Spot compression MLO, LM, and MLO view(s) were taken of the right breast. Prior study comparison: December 31, 2020, bilateral MG 3d screening mammo w/cad. May 21, 2015, bilateral MG 3d diag mammo w/cad MARCELO. The breast tissue is heterogeneously dense. This may lower the sensitivity of mammography. The superior asymmetric density disperses on additional views. These results were verbally communicated with the patient and result sheet given to the patient on 01/17/21. ASSESSMENT: Benign, BI-RAD 2 RECOMMENDATION: Return to routine screening mammogram schedule for both breasts. Manage on a clinical basis with regard to any suspicious palpable areas.
== END | disposition home or self-care (01) ==
LOC: RADMAMWWP 08:30
PROVIDERS: ATTEND Family Medicine
DX: R92.8 Other abnormal and inconclusive findings on diagnostic imaging of breast (principal)
CPT/HCPCS: 77065; 76641; G0279; 77061

== ENCOUNTER → 2021-03-30 | Outpatient (CLI) | payer MEDICARE ==
--- NOTE | 2021-03-30 10:30 | XR ---
EXAMINATION TYPE: XR foot complete LT DATE OF EXAM: 03/30/2021 CLINICAL HISTORY: Pain and swelling across metatarsals TECHNIQUE: Frontal, lateral, and oblique images of the left foot are obtained. COMPARISON: None FINDINGS: [place] osseous structures are demineralized. There is no acute fracture/dislocation eviden t in the left foot. Small superior calcaneal spur. The joint spaces in the left foot appear within no rmal limits. Focal soft tissue prominence dorsal surface proximal to mid metatarsal level on lateral view is noted. No bony destruction. IMPRESSION: As above.
== END | disposition home or self-care (01) ==
LOC: RADXRMAIN 10:02
PROVIDERS: ATTEND Internal Medicine
DX: M79.672 Pain in left foot (principal)

== ENCOUNTER → 2021-03-30 | Outpatient (CLI) | payer MEDICARE ==
[2021-03-30 18:57] LABS: African American GFR (CKD) 130.7 (60.0-200.0); Albumin 3.9 g/dL (3.8-4.9); Albumin/Globulin Ratio 1.98 (1.60-3.17); Anion Gap 13.4 mmol/L (4.00-12.00); BUN/Creat Ratio 25.32 Ratio (12.00-20.00); Blood Urea Nitrogen 9.4 mg/dL (9.0-27.0); Calcium 9.2 mg/dL (8.7-10.3); Carbon Dioxide 25.4 mmol/L (21.6-31.8); Non-African American GFR(CKD) 112.7 (60.0-200.0); Potassium 4.2 mmol/L (3.5-5.5); Total Bilirubin 0.6 mg/dL (0.30-1.20); Total Protein 5.9 g/dL (6.2-8.2)
== END | disposition home or self-care (01) ==
LOC: LABWHC1 10:20
PROVIDERS: ATTEND Psychiatry & Neurology Pain Medicine
DX: I63.9 Cerebral infarction, unspecified (principal)
CPT/HCPCS: 36415; 80053

== ENCOUNTER → 2022-09-14 | Outpatient (CLI) | payer MEDICARE ==
--- NOTE | 2022-09-15 08:07 | XR ---
EXAMINATION TYPE: XR foot complete LT DATE OF EXAM: 09/14/2022 4:54 PM INDICATION: Patient age:Female; 66 years old; Reason for study: M79.672 L FOOT; [facility]. COMPARISON: Left foot radiograph 03/30/2021 TECHNIQUE: The left foot was examined in the AP, oblique, and lateral projections. FINDINGS: Diffuse bone demineralization. No evidence of any acute osseous pathology. No evidence of soft tissu e swelling. Joints are preserved. Small posterior calcaneal spur. IMPRESSION: No evidence of acute fracture.
== END | disposition home or self-care (01) ==
LOC: RADXRMAIN 16:19
PROVIDERS: ATTEND Internal Medicine
DX: M79.672 Pain in left foot (principal)

== ENCOUNTER 2023-07-18 20:49 | Emergency (ER) | payer MEDICARE ==
[2023-07-18 21:02] VITALS: RESP 18
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
--- NOTE | 2023-07-18 21:44 | XR ---
EXAMINATION TYPE: XR Hip LT and AP Pelvis, XR femur LT DATE OF EXAM: 07/18/2023 9:31 PM CLINICAL INDICATION:Female, 67 years old with history of Pain after fall; [facility] COMPARISON: 03/19/2023, 04/26/2023 TECHNIQUE: XR Hip LT and AP Pelvis, XR femur LT; was examined in the frontal and lateral projections and a AP pelvis. FINDINGS: There is a new fracture involving the distal femur not seen on prior on 03/19/2023 or 023. The proximal left femur fracture appears similar to prior. The bony pelvis appears stable from p rior. There is degeneration changes of the knee with osteophyte formation joint space narrowing. Alec tional remote inferior left pubic ramus fracture is present. Multilevel degeneration changes througho ut spine. Mild osteophyte formation of the right hip acetabulum. IMPRESSION: Acute fracture of the distal femur diaphysis. There is intramedullary darcy in place through this regio n with the right appearing intact. There is mild displacement of the fracture fragments.
--- NOTE | 2023-07-18 21:45 | XR ---
EXAMINATION TYPE: XR lumbar spine 2 or 3V DATE OF EXAM: 07/18/2023 9:31 PM CLINICAL INDICATION:Female, 67 years old with history of Pain after fall; [facility] COMPARISON: None TECHNIQUE: XR lumbar spine 2 or 3V - Frontal, lateral and coned in L5-S1 lateral views of the spine. FINDINGS: No evidence of any acute osseous pathology. No evidence of loss of vertebral body height i s seen. There is normal alignment of the lumbar vertebral bodies. Mild scattered disc space narrowing . Multilevel marginal osteophyte formation throughout the visualized spine. There is facet joint arth ropathy throughout the spine. Scattered at least mild neural foraminal stenosis. Atherosclerosis of t he arterial vasculature. Fixation hardware of the pelvis appears intact. IMPRESSION: 1. No acute fracture. 2. Moderate multilevel disc degeneration.
--- NOTE | 2023-07-18 21:48 | XR ---
EXAMINATION TYPE: XR chest 1V DATE OF EXAM: 07/18/2023 9:32 PM CLINICAL INDICATION:Female, 67 years old with history of FALL; [facility] COMPARISON: Chest radiographs from 03/14/2018 TECHNIQUE: XR chest 1V Frontal view of the chest. FINDINGS: Lungs/Pleura: There is no evidence of pleural effusion, focal consolidation, or pneumothorax. Pulmonary vascularity: Unremarkable. Heart/mediastinum: Cardiomediastinal silhouette is unremarkable. Musculoskeletal: No acute osseous pathology. IMPRESSION: No acute cardiopulmonary disease/process.
[2023-07-18] MEDS ORDERED: HYDROmorphone 1 MG/ML 1 ML SYRINGE IVP STA (22:45)
[2023-07-19 00:06] VITALS: BP 162/71; PULSE 74; TEMP 98.3
== END 2023-07-19 00:06 | disposition other institution (70) ==
LOC: EC 20:49
DX: S72.402A Unspecified fracture of lower end of left femur, initial encounter for closed fracture (principal); I25.10 Atherosclerotic heart disease of native coronary artery without angina pectoris; I10 Essential (primary) hypertension; I25.2 Old myocardial infarction; E78.5 Hyperlipidemia, unspecified; K21.9 Gastro-esophageal reflux disease without esophagitis; F17.200 Nicotine dependence, unspecified, uncomplicated; Z86.59 Personal history of other mental and behavioral disorders; Z79.899 Other long term (current) drug therapy; Z91.041 Radiographic dye allergy status; Z91.040 Latex allergy status; Z91.013 Allergy to seafood; Z91.09 Other allergy status, other than to drugs and biological substances; Z88.8 Allergy status to other drugs, medicaments and biological substances; W01.0XXA Fall on same level from slipping, tripping and stumbling without subsequent striking against object, initial encounter
CPT/HCPCS: 72100; 73502; 73552; 71045; 99285; 96374; J1170

== ENCOUNTER 2023-08-02 10:55 | Emergency (ER) | payer MEDICARE ==
[2023-08-02 11:20] LABS: Anisocytosis Slight; Basophils % (A) 0 %; Eosinophils # (A) 0.1 k/uL (0-0.7); Eosinophils % (A) 1 %; HCT 29.4 % (34.0-46.0); HGB 9.9 gm/dL (11.4-16.0); Hypochromasia Slight; Lymphocytes # (A) 0.7 k/uL (1.0-4.8); Lymphocytes % (A) 6 %; MCH 30.6 pg (25.0-35.0); MCHC 33.7 g/dL (31.0-37.0); MCV 90.8 fL (80.0-100.0); Monocytes # (A) 0.6 k/uL (0-1.0); Monocytes % (A) 5 %; Neutrophils # (A) 9.3 k/uL (1.3-7.7); Neutrophils % (A) 87 %; Platelet Count 349 k/uL (150-450); RBC 3.24 m/uL (3.80-5.40); RDW 16.8 % (11.5-15.5); WBC 10.7 k/uL (3.8-10.6)
[2023-08-02 11:32] LABS: African American GFR (CKD) >90 (>60 ml/min/1.73 sqM); Anion Gap 4 mmol/L; Blood Urea Nitrogen 11 mg/dL (7-17); Calcium 9.3 mg/dL (8.4-10.2); Carbon Dioxide 27 mmol/L (22-30); Chloride 107 mmol/L (98-107); Glucose 110 mg/dL (74-99); Non-African American GFR(CKD) >90 (>60 ml/min/1.73 sqM); Potassium 4.4 mmol/L (3.5-5.1); Sodium 138 mmol/L (137-145)
--- NOTE | 2023-08-02 11:46 | XR ---
EXAMINATION TYPE: XR chest 1V portable DATE OF EXAM: 08/02/2023 11:27 AM CLINICAL INDICATION:Female, 67 years old with history of presyncope; [facility] COMPARISON: Chest radiographs from 07/18/2023 TECHNIQUE: XR chest 1V portable Frontal view of the chest. FINDINGS: Lungs/Pleura: There is no evidence of pleural effusion, focal consolidation, or pneumothorax. Pulmonary vascularity: Unremarkable. Heart/mediastinum: Cardiomediastinal silhouette is unremarkable. Musculoskeletal: No acute osseous pathology. IMPRESSION: No acute cardiopulmonary disease/process.
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
[2023-08-02 13:35] VITALS: BP 108/56; PULSE 71; RESP 16; TEMP 97.9
== END 2023-08-02 13:40 | disposition home or self-care (01) ==
LOC: EC 10:55
DX: R55 Syncope and collapse (principal); I25.10 Atherosclerotic heart disease of native coronary artery without angina pectoris; K21.9 Gastro-esophageal reflux disease without esophagitis; E78.5 Hyperlipidemia, unspecified; I10 Essential (primary) hypertension; I25.2 Old myocardial infarction; F32.A Depression, unspecified; F17.200 Nicotine dependence, unspecified, uncomplicated; Z79.899 Other long term (current) drug therapy; Z91.041 Radiographic dye allergy status; Z91.040 Latex allergy status; Z91.09 Other allergy status, other than to drugs and biological substances; Z91.013 Allergy to seafood; Z88.8 Allergy status to other drugs, medicaments and biological substances
CPT/HCPCS: 36415; 71045; 80048; 84484; 85025; 93005; 99284

== ENCOUNTER 2023-08-02 13:58 | Inpatient (IN) | payer MEDICARE ==
[2023-08-02] MEDS ORDERED: NALOXONE 0.4 MG/ML 1 ML VIAL IV PRN (14:47)
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
[2023-08-02 15:59] LABS: INR 0.9 (<1.2); Partial Thromboplastin Time 22.1 sec (22.0-30.0); Prothrombin Time 10.4 sec (10.0-12.5)
[2023-08-02] MEDS: SODIUM CHLORIDE 0.9% 1,000 ML IV SCH (16:06)
[2023-08-02] MEDS: diphenhydrAMINE 50 MG/ML 1 ML VIAL IVP STA (16:44)
[2023-08-02] MEDS: methylPREDNISolone SOD SUCCI 125 MG/2 ML VIAL IV STA (16:44)
[2023-08-02] MEDS: FAMOTIDINE 20 MG/2 ML VIAL IV STA (16:45)
--- NOTE | 2023-08-02 17:53 | CT ---
EXAMINATION TYPE: CT chest angio for PE DATE OF EXAM: 08/02/2023 COMPARISON: None. HISTORY: PE CT DLP: 250.1 mGycm. Automated Exposure Control for Dose Reduction was Utilized. CONTRAST: CTA scan of the thorax is performed with IV Contrast, patient injected with 60 mL of Isovue 300, . MIP Images are created on CT scanner and reviewed. 3D reconstructed images are created on an [employer] ent workstation and reviewed. FINDINGS: LUNGS: The lungs are grossly clear, there is no concerning parenchymal mass or nodule identified. T here is no pleural effusion or pneumothorax seen. The tracheobronchial tree is patent. MEDIASTINUM: There is satisfactory enhancement of the pulmonary artery and its branches, and there is no CT evidence for pulmonary embolism. There is no acute aortic process. No cardiomegaly but left at rial enlargement is noted, and coronary calcifications are detected. There are no greater than 1 cm hilar or mediastinal lymph nodes. Thyroid and esophagus are unremarkab le. OTHER: No miscellaneous significant abnormality is seen. IMPRESSION: Negative for pulmonary embolism or other acute process. Coronary calcifications and left atrial enlargement noted.
--- NOTE | 2023-08-02 18:45 | US ---
EXAMINATION TYPE: US venous doppler duplex LE DATE OF EXAM: 08/02/2023 6:07 PM COMPARISON: NONE CLINICAL INDICATION: Female, 67 years old with history of eval for dvt; Surgery on left femur recentl y (pt cannot remember date.) No hx of DVT. Not on blood thinners SIDE PERFORMED: Bilateral TECHNIQUE: The lower extremity deep venous system is examined utilizing real time linear array sonog chinedu with graded compression, doppler sonography and color-flow sonography. VESSELS IMAGED: Common Femoral Vein Deep Femoral Vein Greater Saphenous Vein * Femoral Vein Popliteal Vein Small Saphenous Vein * Proximal Calf Veins (* superficial vessels) FINDINGS: Grayscale, color doppler, spectral doppler imaging performed of the deep veins of the lower extremities. There is normal flow, compressibility, and vascular waveforms. IMPRESSION: Negative for DVT, bilateral lower extremities.
[2023-08-02] MEDS ORDERED: LIDOCAINE 4% PATCH TOPICAL PRN (18:46)
[2023-08-02] MEDS ORDERED: MECLIZINE 12.5 MG TAB PO PRN (18:46)
[2023-08-02] MEDS ORDERED: ACETAMINOPHEN TAB 325 MG TAB PO PRN (18:46)
[2023-08-02] MEDS: EZETIMIBE 10 MG TAB PO SCH (21:37)
[2023-08-02] MEDS: BACLOFEN 10 MG TAB PO SCH (21:37)
[2023-08-02] MEDS: ATORVASTATIN 40 MG TAB PO SCH (21:38)
[2023-08-02] MEDS: DOXAZOSIN 2 MG TAB PO SCH (21:38)
[2023-08-02] MEDS: METOPROLOL TARTRATE 25 MG TAB PO SCH (21:38)
[2023-08-02] MEDS: oxyBUTYnin chloride 5 MG TAB PO SCH (21:38)
[2023-08-02] MEDS: DULoxetine HCL 20 MG CAPSULE.DR PO SCH (21:38)
[2023-08-02] MEDS: ASPIRIN 81 MG PO SCH (21:38)
[2023-08-02] MEDS: NORTRIPTYLINE 25 MG CAP PO SCH (21:38)
[2023-08-03 08:49] LABS: ALT 13 U/L (4-34); AST 25 U/L (14-36); African American GFR (CKD) >90 (>60 ml/min/1.73 sqM); Albumin 3.3 g/dL (3.5-5.0); Alkaline Phosphatase 151 U/L (38-126); Anion Gap 5 mmol/L; Blood Urea Nitrogen 16 mg/dL (7-17); Calcium 9.4 mg/dL (8.4-10.2); Carbon Dioxide 27 mmol/L (22-30); Chloride 106 mmol/L (98-107); Glucose 157 mg/dL (74-99); Non-African American GFR(CKD) >90 (>60 ml/min/1.73 sqM); Sodium 138 mmol/L (137-145); Total Bilirubin 0.9 mg/dL (0.2-1.3); Total Protein 5.7 g/dL (6.3-8.2)
[2023-08-03] MEDS ORDERED: NON FORMULARY DRUG (Ubidecarenone [Coenzyme Q10] 200 MG Capsule) PO SCH (09:00)
[2023-08-03] MEDS ORDERED: NON FORMULARY DRUG (Vitamin B Complex [Vitamin B Complex] 1 EACH Capsule) PO SCH (09:00)
[2023-08-03 09:01] VITALS: RESP 16
[2023-08-03] MEDS: ENOXAPARIN 40 MG/0.4 ML SYRINGE SQ SCH (09:03)
[2023-08-03] MEDS: ASCORBIC ACID 500 MG TAB PO SCH (09:04)
[2023-08-03] MEDS: FUROSEMIDE 20 MG TAB PO SCH (09:04)
[2023-08-03] MEDS: CHOLECALCIFEROL 25 MCG (1000 IU) TABLET PO SCH (09:05)
[2023-08-03] MEDS: SENNOSIDES-DOCUSATE SODIUM 1 EACH TAB PO SCH (09:05)
[2023-08-03] MEDS: PANTOPRAZOLE 40 MG TABLET PO SCH (09:05)
[2023-08-03] MEDS: LOSARTAN 25 MG TAB PO SCH (09:06)
[2023-08-03] MEDS: CALCIUM CARBONATE 500 MG CHEWABLE PO SCH (09:06)
[2023-08-03 09:42] LABS: Anisocytosis Slight; Basophils % (A) 1 %; Eosinophils % (A) 0 %; HCT 32.7 % (34.0-46.0); HGB 10.2 gm/dL (11.4-16.0); Hypochromasia Marked; Lymphocytes # (A) 0.4 k/uL (1.0-4.8); Lymphocytes % (A) 8 %; MCHC 31.2 g/dL (31.0-37.0); Mean Platelet Volume 8.1; Monocytes # (A) 0.1 k/uL (0-1.0); Monocytes % (A) 2 %; Neutrophils # (A) 4.8 k/uL (1.3-7.7); Neutrophils % (A) 89 %; Platelet Count 341 k/uL (150-450); RDW 16.1 % (11.5-15.5); WBC 5.4 k/uL (3.8-10.6)
[2023-08-03 09:43] LABS: MCV 96.2 fL (80.0-100.0)
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
--- NOTE | 2023-08-03 18:00 | CA ---
Transthoracic Echo Report Name: Caitlin Ballard Age: 67 Gender: F : 1955 Exam Date: 08/03/2023 15:07 Exam Location: [facility] Ht (in): 67 Wt (lb): 140 Ordering Physician: Jeane Jackson Attending/Referring Phys: [id number], [facility] Miguel Nguyen RDCS Procedure CPT: Indications: syncope, LV function Cardiac Hx: Technical Quality: Fair Contrast 1: Total Dose (mL): Contrast 2: Total Dose (mL): MEASUREMENTS (Male / Female) Normal Values 2D ECHO LV Diastolic Diameter PLAX 4.0 cm 4.2 - 5.9 / 3.9 - 5.3 cm LV Systolic Diameter PLAX 2.6 cm IVS Diastolic Thickness 1.1 cm 0.6 - 1.0 / 0.6 - 0.9 cm LVPW Diastolic Thickness 1.3 cm 0.6 - 1.0 / 0.6 - 0.9 cm LV Relative Wall Thickness 0.6 LVOT Diameter 2.0 cm Aortic Root Diameter 2.8 cm LV Diastolic Volume MOD BP 59.7 cm??? 67 - 155 / 56 - 104 cm??? LV Systolic Volume MOD BP 17.0 cm??? 22 - 58 / 19 - 49 cm??? LV Ejection Fraction MOD BP 71.6 % >= 55 % LV Diastolic Volume MOD 4C 64.0 cm??? LV Systolic Volume MOD 4C 13.7 cm??? LV Ejection Fraction MOD 4C 78.6 % LV Diastolic Length 4C 7.3 cm LV Systolic Length 4C 6.2 cm LV Diastolic Volume MOD 2C 50.0 cm??? LV Systolic Volume MOD 2C 20.3 cm??? LV Ejection Fraction MOD 2C 59.3 % LV Diastolic Length 2C 6.5 cm LV Systolic Length 2C 6.4 cm LA Volume 55.1 cm??? 18 - 58 / 22 - 52 cm??? LA Volume Index 31.8 cm???/m??? 16 - 28 cm???/m??? DOPPLER AV Peak Velocity 153.4 cm/s AV Peak Gradient 9.4 mmHg AV Mean Velocity 100.6 cm/s AV Mean Gradient 4.7 mmHg AV Velocity Time Integral 34.3 cm LVOT Peak Velocity 146.6 cm/s LVOT Peak Gradient 8.6 mmHg LVOT Velocity Time Integral 33.7 cm LVOT Stroke Volume 105.7 cm??? LVOT Stroke Volume Index 60.8 ml/m??? AV Area Cont Eq vti 3.1 cm??? AV Area Cont Eq pk 3.0 cm??? MV Peak Velocity 150.3 cm/s MV Peak Gradient 9.0 mmHg MV Mean Velocity 61.7 cm/s MV Mean Gradient 2.2 mmHg MV Velocity Time Integral 44.4 cm Mitral E Point Velocity 136.5 cm/s Mitral A Point Velocity 60.5 cm/s Mitral E to A Ratio 2.3 MV Deceleration Time 172.2 ms TR Peak Velocity 121.5 cm/s TR Peak Gradient 5.9 mmHg Right Ventricular Systolic Press 10.9 mmHg PV Peak Velocity 107.7 cm/s PV Peak Gradient 4.6 mmHg FINDINGS Left Ventricle Normal LVsize and wall thickness.Normal left ventricular systolic function with no obvious regional wall motion abnormalities. Left ventricular ejection fraction is estimated at 55-60 %. Right Ventricle Normal right ventricular size. Right Atrium Normal right atrial size. Left Atrium Mild to moderate left atrial dilatation. LA volume index= 32ml/m2 Mitral Valve Structurally normal mitral valve. No mitral stenosis. Mild mitral regurgitation. Aortic Valve Trileaflet aortic valve. No aortic valve stenosis or regurgitation. Tricuspid Valve Structurally normal tricuspid valve. Mild TR. Pulmonic Valve Pulmonic valve not well visualized. No pulmonic regurgitation. Pericardium No pericardial effusion. Aorta Normal size aortic root. CONCLUSIONS 1. Normal left ventricular size and systolic function 2. Mild mitral and tricuspid regurgitation Previewed by: Dr. Mick Watson MD (Electronically Signed) Final Date: 03 August 2023 17:59
[2023-08-04] MEDS: SENNOSIDES-DOCUSATE SODIUM 1 EACH TAB PO SCH (07:41)
[2023-08-04 07:53] VITALS: BP 158/69; PULSE 70; TEMP 98
[2023-08-05] MEDS ORDERED: SENNOSIDES-DOCUSATE SODIUM 1 EACH TAB PO SCH (09:00)
== END 2023-08-04 11:19 | disposition home health service (06) | DRG 315 ==
LOC: EC 13:58 → 3SCARD 14:49
PROVIDERS: ADMIT Internal Medicine; ATTEND Internal Medicine
DX: I42.1 Obstructive hypertrophic cardiomyopathy (principal); M97.12XA Periprosthetic fracture around internal prosthetic left knee joint, initial encounter; S72.402A Unspecified fracture of lower end of left femur, initial encounter for closed fracture; I11.9 Hypertensive heart disease without heart failure; J44.9 Chronic obstructive pulmonary disease, unspecified; I34.1 Nonrheumatic mitral (valve) prolapse; F32.A Depression, unspecified; I34.0 Nonrheumatic mitral (valve) insufficiency; E03.9 Hypothyroidism, unspecified; G89.4 Chronic pain syndrome; E78.2 Mixed hyperlipidemia; K21.00 Gastro-esophageal reflux disease with esophagitis, without bleeding; M54.50 Low back pain, unspecified; F41.9 Anxiety disorder, unspecified; G47.00 Insomnia, unspecified; K59.00 Constipation, unspecified; I25.10 Atherosclerotic heart disease of native coronary artery without angina pectoris; F17.210 Nicotine dependence, cigarettes, uncomplicated; Z87.820 Personal history of traumatic brain injury; Z79.82 Long term (current) use of aspirin; I25.2 Old myocardial infarction; Z82.49 Family history of ischemic heart disease and other diseases of the circulatory system; Z79.899 Other long term (current) drug therapy; Z85.42 Personal history of malignant neoplasm of other parts of uterus; Z86.73 Personal history of transient ischemic attack (TIA), and cerebral infarction without residual deficits; Z85.3 Personal history of malignant neoplasm of breast; Z91.041 Radiographic dye allergy status; Z91.040 Latex allergy status; Z91.013 Allergy to seafood; Z91.048 Other nonmedicinal substance allergy status; Z88.8 Allergy status to other drugs, medicaments and biological substances; Z91.02 Food additives allergy status
CPT/HCPCS: 71275; 80053; 85025; 85379; 85610; 85730; 93005; 93270; 93306; 93970; 96374; 96375; 99285

== ENCOUNTER 2023-08-08 04:11 | Inpatient (IN) | payer MEDICARE ==
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
[2023-08-08 05:22] LABS: Basophils % (A) 1 %; Eosinophils # (A) 0.3 k/uL (0-0.7); Eosinophils % (A) 3 %; HCT 35.1 % (34.0-46.0); HGB 11.3 gm/dL (11.4-16.0); Hypochromasia Moderate; Lymphocytes # (A) 1.3 k/uL (1.0-4.8); Lymphocytes % (A) 16 %; MCH 29.2 pg (25.0-35.0); MCHC 32.2 g/dL (31.0-37.0); Monocytes # (A) 0.6 k/uL (0-1.0); Monocytes % (A) 7 %; Neutrophils # (A) 6.1 k/uL (1.3-7.7); Neutrophils % (A) 73 %; Platelet Count 290 k/uL (150-450); RBC 3.87 m/uL (3.80-5.40); RDW 15.9 % (11.5-15.5); WBC 8.3 k/uL (3.8-10.6)
[2023-08-08 05:31] LABS: ALT 19 U/L (4-34); AST 55 U/L (14-36); African American GFR (CKD) >90 (>60 ml/min/1.73 sqM); Albumin 3.8 g/dL (3.5-5.0); Alkaline Phosphatase 172 U/L (38-126); Anion Gap 3 mmol/L; Blood Urea Nitrogen 11 mg/dL (7-17); Carbon Dioxide 27 mmol/L (22-30); Chloride 107 mmol/L (98-107); Glucose 108 mg/dL (74-99); Non-African American GFR(CKD) >90 (>60 ml/min/1.73 sqM); Sodium 137 mmol/L (137-145); Total Protein 6.4 g/dL (6.3-8.2)
[2023-08-08 05:57] LABS: INR 0.9 (<1.2); MCV 90.5 fL (80.0-100.0); Prothrombin Time 10.3 sec (10.0-12.5)
[2023-08-08 06:07] LABS: Partial Thromboplastin Time 21.6 sec (22.0-30.0)
[2023-08-08 06:12] LABS: Potassium 5.2 mmol/L (3.5-5.1)
[2023-08-08] MEDS ORDERED: NALOXONE 0.4 MG/ML 1 ML VIAL IV PRN (06:39)
[2023-08-08] MEDS: SODIUM CHLORIDE 0.9% 1,000 ML IV SCH (06:59)
--- NOTE | 2023-08-08 08:00 | XR ---
EXAMINATION TYPE: XR chest 2V DATE OF EXAM: 08/08/2023 COMPARISON: 08/02/2023 HISTORY: 67-year-old female with chest pain TECHNIQUE: PA and lateral views FINDINGS: Electronic device projects over the left mid chest. Heart normal size. Aorta and pulmonary vasculatur e within normal limits. Mild hyperinflation. No consolidation or pleural effusion. IMPRESSION: COPD. No acute process seen.
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
[2023-08-08] MEDS ORDERED: ACETAMINOPHEN TAB 325 MG TAB PO PRN (11:13)
[2023-08-08] MEDS: FUROSEMIDE 20 MG TAB PO SCH (12:40)
[2023-08-08] MEDS: SENNOSIDES-DOCUSATE SODIUM 1 EACH TAB PO SCH (12:41)
[2023-08-08] MEDS: LOSARTAN 25 MG TAB PO SCH (12:41)
[2023-08-08] MEDS: BACLOFEN 10 MG TAB PO SCH (20:22)
[2023-08-08] MEDS: DULoxetine HCL 20 MG CAPSULE.DR PO SCH (20:22)
[2023-08-08] MEDS: ATORVASTATIN 40 MG TAB PO SCH (20:22)
[2023-08-08] MEDS: ASPIRIN 81 MG PO SCH (20:22)
[2023-08-08] MEDS: oxyBUTYnin chloride 5 MG TAB PO SCH (20:22)
[2023-08-08] MEDS: DOXAZOSIN 2 MG TAB PO SCH (20:22)
[2023-08-08] MEDS: EZETIMIBE 10 MG TAB PO SCH (20:22)
[2023-08-08] MEDS: NORTRIPTYLINE 25 MG CAP PO SCH (20:22)
[2023-08-09] MEDS: PANTOPRAZOLE 40 MG TABLET PO SCH (06:11)
[2023-08-09] MEDS ORDERED: NON FORMULARY DRUG (Ubidecarenone [Coenzyme Q10] 200 MG Capsule) PO SCH (09:00)
[2023-08-09] MEDS ORDERED: NON FORMULARY DRUG (Vitamin B Complex [Vitamin B Complex] 1 EACH Capsule) PO SCH (09:00)
[2023-08-09] MEDS: SODIUM CHLORIDE 0.9% 1,000 ML IV SCH ×2 (09:49→10:05)
[2023-08-09] MEDS: ENOXAPARIN 40 MG/0.4 ML SYRINGE SQ SCH (10:05)
[2023-08-09] MEDS: SENNOSIDES-DOCUSATE SODIUM 1 EACH TAB PO SCH (10:06)
--- NOTE | 2023-08-09 11:29 | P.PN ---
Subjective HISTORY OF PRESENT ILLNESS: This is a 67-year-old female with a past medical history significant for chronic pain, mitral regurgitation, hypertension, and hyperlipidemia. Patient follows in the office with Dr. Watson. We have been asked to see the patient in consultation for sinus pause. Patient examined at the bedside in the emergency room. Patient was recently admitted to the hospital secondary to a syncopal episode. Patient received an event monitor and was discharged home. She states she received a call this morning from the event monitor company instructing her to come to the emergency room. The patient states that at 2:00 this morning she got up to go to the bathroom and she felt dizzy. She states that she was walking to the bathroom she passed out. She states she had another syncopal episode about 10 minutes afterwards. The patient states she has been having syncopal episodes most of her life. Her family members at the bedside who states that the patient typically will take a big deep breath and then she just slumped over and passes out. The patient states that she feels exhausted and foggy after these episodes. She currently denies any chest pain or pressure. She denies any shortness of breath. She reports a history of myocardial infarction approximately 9 years ago in [place]. She states that she underwent heart catheterization but did not require any stenting. She states she has a brother who has an ICD but is unsure of the reason why this was placed. EKG on admission revealed atrial fibrillation with controlled ventricular rate. The patient denies a history of atrial fibrillation. Event monitor telemetry tracings reviewed revealing runs of atrial fibrillation with a 6.6-second pause. DIAGNOSTICS: - EKG reveals atrial fibrillation with controlled ventricular rate - Chest xray COPD. No acute process seen.. - Laboratory data: WBC 8.3. Hemoglobin 11.3. Platelet count 290. Sodium 137. Potassium 5.2. BUN 11. Creatinine 0.55. Magnesium 2.0 troponin negative x 2 - Current home cardiac medications include metoprolol tartrate 75 mg twice a day, losartan 25 mg daily, Lasix 20 mg daily, Zetia 10 mg at night, atorvastatin 40 mg at night, aspirin 81 mg daily. - Most recent echocardiogram obtained on 08/03/2023 revealed ejection fraction 55 to 60%, mild TR, mild MR - Patient underwent Lexiscan stress test in September 2017 which was negative for ischemia 08/09/2023 Patient examined this morning at the bedside. Patient denies any chest pain or pressure. She denies any shortness of breath. Telemetry reveals heart rates between 5070. No episodes of bradycardia or significant pauses since metoprolol has been on hold. PHYSICAL EXAM: VITAL SIGNS: Reviewed. GENERAL: Well-developed in no acute distress. HEENT: Head is normocephalic. Pupils are equal, round. Sclerae anicteric. Mucous membranes of the mouth are moist. Neck supple. No JVD or thyromegaly LUNGS: Respirations even and unlabored. Lungs essentially clear to auscultation bilaterally. HEART: Regular rate and rhythm. S1 and S2 heard. Systolic murmur noted ABDOMEN: Soft. Nondistended. Nontender. EXTREMITIES: Normal range of motion. No clubbing or cyanosis. Peripheral pulses intact. No lower extremity edema NEUROLOGIC: Awake and alert. Oriented x 3. ASSESSMENT: Recurrent syncope, related to sinus pause documented on event monitor 6.6-second pause New onset atrial fibrillation Hypertension Hyperlipidemia Questionable HOCM with LVOT obstruction, per echocardiogram in 2018. Most recent echo no evidence of LVOT or HOCM Nicotine dependence Chronic pain with long-term opioid use PLAN: No need to repeat echocardiogram as this was performed last admission Continue current cardiac medications Hold beta-cesario therapy at this time Continue telemetry monitoring Will hold on anticoagulation for onset atrial fibrillation due to pacemaker implantation. Start Eliquis 5mg bid 08/11 Patient without any reversible causes of 6.6 sinus pause and additionally having what appeared to be longer pause picked up by monitor just prior to pause. Beta cesario does not explain this amount of sinus arrest. Therefore discussed risks and benefits of permanent pacemaker and patient is agreeable. Patient to undergo pacemaker implantation tomorrow with Dr. Cazares N.p.o. at midnight Further recommendations pending patient course Nurse practitioner note has been reviewed by physician. Signing provider agrees with the documented findings, assessment, and plan of care documented by CODE ENFORCEMENT SUPERVISOR as a scribe. Objective - Vital Signs Vital signs: Vital Signs Temp 97.8 F 08/09/23 07:35 Pulse 68 08/09/23 07:35 Resp 16 08/09/23 07:35 BP 154/65 08/09/23 07:35 Pulse Ox 98 08/09/23 07:35 FiO2 Intake & Output 08/08/23 08/09/23 08/09/23 18:59 06:59 18:59 Intake Total 118 Balance 118 Intake: Oral 118 Other: # Voids 1 1 - Labs CBC & Chem 7: 08/08/23 05:05 08/08/23 05:05
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
[2023-08-10 08:11] LABS: Glucose,Whole Blood 73 mg/dL (70-110)
[2023-08-10] MEDS ORDERED: LIDOCAINE 1% INJ 10MG/ML (20 ML MDV) ONE ×2 (09:17→09:42)
[2023-08-10] MEDS: MIDAZOLAM 2 MG/2 ML VIAL IVP ONE ×2 (09:20→09:43)
[2023-08-10] MEDS: fentaNYL (PF) 50 MCG/ML 2 ML AMP IVP ONE (09:20)
[2023-08-10] MEDS: SODIUM CHLORIDE 0.9% 500 ML 500 ML IV ONE (09:20)
[2023-08-10] MEDS ORDERED: fentaNYL (PF) 50 MCG/ML 2 ML AMP ONE ×2 (09:21→11:42)
[2023-08-10] MEDS: LIDOCAINE 1% INJ 10MG/ML (20 ML MDV) SQ ONE ×2 (09:33→09:40)
[2023-08-10] MEDS: ceFAZolin 1 GM in SODIUM CHLORIDE 0.9% IRRIG BTL 250 ML IRRIGATION PRN (09:44)
[2023-08-10] MEDS: SODIUM CHLORIDE 0.9% 1,000 ML IV ONE (10:00)
[2023-08-10] MEDS: fentaNYL (PF) 50 MCG/1 ML VIAL IVP ONE (11:44)
[2023-08-10] MEDS ORDERED: ACETAMINOPHEN TAB 325 MG TAB PO PRN (13:30)
--- NOTE | 2023-08-10 14:05 | XR ---
EXAMINATION TYPE: XR chest 1V portable DATE OF EXAM: 08/10/2023 COMPARISON: 08/08/2023. HISTORY: Lead placement check. TECHNIQUE: Single frontal view of the chest is obtained. FINDINGS: There is no focal air space opacity, pleural effusion, or pneumothorax seen. The cardiac silhouette size is within normal limits. The osseous structures are intact. Left-sided dual-lead pa cemaker generator has leads overlying the right atrium and right ventricle. IMPRESSION: Pacemaker generator and leads with no acute findings.
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
[2023-08-10] MEDS: METOPROLOL TARTRATE 25 MG TAB PO SCH (18:18)
[2023-08-10] MEDS: ACETAMINOPHEN SUSP (DYE FREE) 3,840 MG/120 ML BOTTLE PO PRN (18:53)
--- NOTE | 2023-08-10 20:31 | P.OP ---
Description of Procedure: CARDIOLOGY PROCEDURE NOTE [employer] Sales Manager: Dr. Nate Cazares Procedure performed: Insertion dual chamber permanent pacemaker Site: Left subclavian Indications: Sick Sinus Syndrome, 6.6 second sinus arrest, symptomatic bradycardia, syncope Complications: None Blood Loss: Minimal Description of Procedure: After the risks, benefits, and alternatives of the above-mentioned procedure was explained in detail with the patient, informed consent was obtained. The patient was taken to the cardiac catheterization suite where the left subclavian area was sterily prepped and draped in the usual fashion. One percent lidocaine was used to anesthetize the left subclavian area. A 1.5 inch incision was made utilizing a #15 blade in the left subclavian site. Hemostasis was made complete. Electrocautery along with digital blunt dissection was utilized to dissect to the level of the pectoralis muscle fascia and create a pocket large enough to accommodate the generator. A thin walled micro puncuture needle was used to cannulate the left subclavian vein. A guide-wire was inserted through the needle into the vascular lumen under fluoroscopic guidance. The needle was removed. Another thin walled micr puncture needle was used to again cannulate the left subclavian vein. A guide-wire was inserted through the needle into the vascular lumen under fluoroscopic guidance. The needle was removed and both guide-wires were attached to the field. A venous sheath and dilator were advanced over the guidewire into the vascular lumen under fluoroscopic guidance. The dilator and guidewire were then removed. A right ventricular bipolar lead was inserted into the sheath and advanced under fluoroscopic guidance into the right ventricle und er fluoroscopic guidance. A number of positions were attempted with apical RV not easily obtainable and eventually decided to place septal position. Septal position was attempted twice however unstable and readjusted. Adequate sensing and pacing thresholds were achieved and the lead was screwed into place in the RV apical septum. The sheath was then torn away. The lead collar was advanced and anchored into place utilizing #0 silk suture. Next, another venous sheath and dilator were advanced under fluoroscopic guidance into the vascular lumen over the guidewire. After removal of the dilator and guidewire, a right atrial bipolar lead was inserted into this sheath and advanced under fluoroscopic guidance into the right atrium. The lead was positioned into the right atrial appendage. Adequate sensing and pacing thresholds were then achieved with patient being in Aflutter at the time and the lead was screwed into place. The sheath was then torn away. The lead collar was advanced and anchored into place utilizing #0 silk suture. The leads were then inserted into the appropriate position into the generator. They were then secured with the setscrew provided. The leads and generator were inserted into the pocket with the leads posterior. The subcutaneous tissue was approximated utilizing #2.0 and 3.0 vicryl in an interrupted stitch fashion. The dermal layer was approximated utilizing #4.0 vicryl. The area was cleansed with sterile saline and dried. A sterile 4x4 dressing was applied and the patient was transferred to the post catheterization holding area in stable and satisfactory condition. The patient tolerated the procedure well. Generator Data Furnace Worker: [employer] Brand: [id number] Kalee XT DR MRI Model #: [id number] Serial#: [id number] Right Atrial Bipolar Lead Data: Type: Active fixation lead Furnace Worker: [employer] Model#: 5076-45 Serial Number: [id number] Right Ventricular Bipolar Lead Data: Type: Active fixation lead Furnace Worker: [employer] Model #: 5076-52 Serial #: [id number] Stimulation Thresholds: Right atrial bipolar lead pacing and sensing thresholds Voltage: 1.25V Impedance: 779 ohms P-wave sensin.4 mV Right Ventricular bipolar lead pacing and sensing thresholds Pulse Width: 0.4ms Voltage: 1.0 volts Impedance: 806 ohms R-wave sensin.3 mV Parameter Setting: Pacing mode is AAIR<=>DDDR Lower rate 60 bpm Upper rate 130 bpm Impressions: 1. Successful implantation of a dual chamber permanent pacemaker in the left pectoral site. Plan: 1. Routine post procedure care will be instituted as well as outpatient follow- up surveillance.
[2023-08-10 21:12] VITALS: RESP 16
[2023-08-11 08:01] VITALS: BP 167/73; PULSE 70; TEMP 97.8
--- NOTE | 2023-08-11 09:41 | P.PN ---
Subjective HISTORY OF PRESENT ILLNESS: This is a 67-year-old female with a past medical history significant for chronic pain, mitral regurgitation, hypertension, and hyperlipidemia. Patient follows in the office with Dr. Watson. We have been asked to see the patient in consultation for sinus pause. Patient examined at the bedside in the emergency room. Patient was recently admitted to the hospital secondary to a syncopal episode. Patient received an event monitor and was discharged home. She states she received a call this morning from the event monitor company instructing her to come to the emergency room. The patient states that at 2:00 this morning she got up to go to the bathroom and she felt dizzy. She states that she was walking to the bathroom she passed out. She states she had another syncopal episode about 10 minutes afterwards. The patient states she has been having syncopal episodes most of her life. Her family members at the bedside who states that the patient typically will take a big deep breath and then she just slumped over and passes out. The patient states that she feels exhausted and foggy after these episodes. She currently denies any chest pain or pressure. She denies any shortness of breath. She reports a history of myocardial infarction approximately 9 years ago in [place]. She states that she underwent heart catheterization but did not require any stenting. She states she has a brother who has an ICD but is unsure of the reason why this was placed. EKG on admission revealed atrial fibrillation with controlled ventricular rate. The patient denies a history of atrial fibrillation. Event monitor telemetry tracings reviewed revealing runs of atrial fibrillation with a 6.6-second pause. DIAGNOSTICS: - EKG reveals atrial fibrillation with controlled ventricular rate - Chest xray COPD. No acute process seen.. - Laboratory data: WBC 8.3. Hemoglobin 11.3. Platelet count 290. Sodium 137. Potassium 5.2. BUN 11. Creatinine 0.55. Magnesium 2.0 troponin negative x 2 - Current home cardiac medications include metoprolol tartrate 75 mg twice a day, losartan 25 mg daily, Lasix 20 mg daily, Zetia 10 mg at night, atorvastatin 40 mg at night, aspirin 81 mg daily. - Most recent echocardiogram obtained on 08/03/2023 revealed ejection fraction 55 to 60%, mild TR, mild MR - Patient underwent Lexiscan stress test in September 2017 which was negative for ischemia 08/09/2023 Patient examined this morning at the bedside. Patient denies any chest pain or pressure. She denies any shortness of breath. Telemetry reveals heart rates between 5070. No episodes of bradycardia or significant pauses since metoprolol has been on hold. 08/11/2023 Patient is status post Medtronic dual-chamber pacemaker implantation. Postop day #1. Patient examined this morning at the bedside. Patient denies any chest pain or pressure. She denies any shortness of breath. She denies any dizziness or lightheadedness. Denies any further syncopal episodes. Chest x-ray completed post procedure is negative for pneumothorax. Patient's device has not been interrogated at the time of examination. PHYSICAL EXAM: VITAL SIGNS: Reviewed. GENERAL: Well-developed in no acute distress. HEENT: Head is normocephalic. Pupils are equal, round. Sclerae anicteric. Mucous membranes of the mouth are moist. Neck supple. No JVD or thyromegaly LUNGS: Respirations even and unlabored. Lungs essentially clear to auscultation bilaterally. HEART: Regular rate and rhythm. S1 and S2 heard. Systolic murmur noted ABDOMEN: Soft. Nondistended. Nontender. EXTREMITIES: Normal range of motion. No clubbing or cyanosis. Peripheral pulses intact. No lower extremity edema NEUROLOGIC: Awake and alert. Oriented x 3. ASSESSMENT: Recurrent syncope 6.6-second pause New onset atrial fibrillation Hypertension Hyperlipidemia Questionable HOCM with LVOT obstruction, per echocardiogram in 2018 Nicotine dependence Chronic pain with long-term opioid use PLAN: Continue current cardiac medications Add Eliquis 5 mg twice a day beginning tonight at 2100 due to new onset atrial fibrillation Discontinue aspirin Await interrogation of patient's device Anticipate discharge home this afternoon Patient to follow-up postdischarge with Dr. Watson Nurse practitioner note has been reviewed by physician. Signing provider agrees with the documented findings, assessment, and plan of care documented by MEDICAL REPRESENTATIVE as a scribe. Objective - Vital Signs Vital signs: Vital Signs Temp 97.8 F 08/11/23 07:52 Pulse 70 08/11/23 07:52 Resp 16 08/11/23 07:52 BP 167/73 08/11/23 07:52 Pulse Ox 93 L 08/11/23 07:52 FiO2 Intake & Output 08/10/23 08/11/23 08/11/23 18:59 06:59 18:59 Intake Total 1500 Balance 1500 Intake: IV 1300 Oral 200 Other: Voiding Method Toilet Toilet # Voids 1 2 - Labs CBC & Chem 7: 08/08/23 05:05 08/08/23 05:05
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
[2023-08-11] MEDS ORDERED: APIXABAN 5 MG TAB PO SCH (21:00)
[2023-08-12] MEDS ORDERED: SENNOSIDES-DOCUSATE SODIUM 1 EACH TAB PO SCH (09:00)
== END 2023-08-11 14:57 | disposition home health service (06) | DRG 243 ==
LOC: EC 04:11 → 6NMEDSUR 06:42 → OBSVTOIN 08-10 09:12
PROVIDERS: ADMIT Internal Medicine; ATTEND Internal Medicine
DX: I45.5 Other specified heart block (principal); I42.1 Obstructive hypertrophic cardiomyopathy; I48.91 Unspecified atrial fibrillation; I49.5 Sick sinus syndrome; J44.9 Chronic obstructive pulmonary disease, unspecified; E03.9 Hypothyroidism, unspecified; E78.2 Mixed hyperlipidemia; I11.9 Hypertensive heart disease without heart failure; F17.210 Nicotine dependence, cigarettes, uncomplicated; F32.A Depression, unspecified; F41.9 Anxiety disorder, unspecified; G47.00 Insomnia, unspecified; G89.4 Chronic pain syndrome; I25.10 Atherosclerotic heart disease of native coronary artery without angina pectoris; I34.0 Nonrheumatic mitral (valve) insufficiency; I34.1 Nonrheumatic mitral (valve) prolapse; K21.00 Gastro-esophageal reflux disease with esophagitis, without bleeding; K59.00 Constipation, unspecified; V89.2XXS Person injured in unspecified motor-vehicle accident, traffic, sequela; Z28.310 Unvaccinated for COVID-19; Z91.041 Radiographic dye allergy status; Z91.040 Latex allergy status; Z88.5 Allergy status to narcotic agent; Z85.42 Personal history of malignant neoplasm of other parts of uterus; Z85.3 Personal history of malignant neoplasm of breast; M97.02XD Periprosthetic fracture around internal prosthetic left hip joint, subsequent encounter; Z79.899 Other long term (current) drug therapy; Z79.891 Long term (current) use of opiate analgesic; Z79.01 Long term (current) use of anticoagulants; I25.2 Old myocardial infarction; Z87.820 Personal history of traumatic brain injury
CPT/HCPCS: 33208; 36415; 71045; 71046; 80053; 83735; 84484; 85025; 85610; 85730; 93005; 94760; 96360; 96361; 99285

== ENCOUNTER 2023-08-17 10:28 | Observation (INO) | payer MEDICARE ==
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
[2023-08-17] MEDS: SODIUM CHLORIDE 0.9% 500 ML 500 ML IV STA (11:16)
[2023-08-17 11:19] LABS: Anisocytosis Slight; Basophils % (A) 0 %; Eosinophils # (A) 0.2 k/uL (0-0.7); Eosinophils % (A) 4 %; HCT 32.1 % (34.0-46.0); HGB 10.5 gm/dL (11.4-16.0); Hypochromasia Moderate; Lymphocytes # (A) 0.9 k/uL (1.0-4.8); Lymphocytes % (A) 19 %; MCH 29.4 pg (25.0-35.0); MCHC 32.6 g/dL (31.0-37.0); Mean Platelet Volume 9.6; Monocytes # (A) 0.4 k/uL (0-1.0); Monocytes % (A) 9 %; Neutrophils % (A) 65 %; Platelet Count 180 k/uL (150-450); RBC 3.57 m/uL (3.80-5.40); RDW 16.1 % (11.5-15.5); WBC 4.6 k/uL (3.8-10.6)
[2023-08-17 11:28] LABS: INR 0.9 (<1.2); Partial Thromboplastin Time 29.4 sec (22.0-30.0); Prothrombin Time 10.5 sec (10.0-12.5)
--- NOTE | 2023-08-17 11:31 | XR ---
EXAMINATION TYPE: XR chest 2V DATE OF EXAM: 08/17/2023 11:27 AM CLINICAL INDICATION:Female, 67 years old with history of syncope; [facility] COMPARISON: Chest radiographs from 08/10/2023. TECHNIQUE: XR chest 2V Frontal and lateral views of the chest. FINDINGS: Lungs/Pleura: There is no evidence of pleural effusion, focal consolidation, or pneumothorax. Pulmonary vascularity: Unremarkable. Heart/mediastinum: Cardiomediastinal silhouette is unremarkable. Atherosclerotic calcifications are seen in the aorta. Two lead cardiac conduction device overlying the left hemithorax with lead tips pr ojecting over the right ventricle and right atrium. Musculoskeletal: No acute osseous pathology. Other findings: None IMPRESSION: No acute cardiopulmonary disease/process.
[2023-08-17 11:38] LABS: ALT 12 U/L (4-34); AST 33 U/L (14-36); African American GFR (CKD) >90 (>60 ml/min/1.73 sqM); Albumin 3.3 g/dL (3.5-5.0); Alkaline Phosphatase 148 U/L (38-126); Anion Gap 4 mmol/L; Blood Urea Nitrogen 4 mg/dL (7-17); Calcium 9.1 mg/dL (8.4-10.2); Carbon Dioxide 28 mmol/L (22-30); Chloride 106 mmol/L (98-107); Glucose 96 mg/dL (74-99); Non-African American GFR(CKD) >90 (>60 ml/min/1.73 sqM); Sodium 138 mmol/L (137-145); Total Bilirubin 0.9 mg/dL (0.2-1.3); Total Protein 5.7 g/dL (6.3-8.2)
[2023-08-17] MEDS ORDERED: NALOXONE 0.4 MG/ML 1 ML VIAL IV PRN (13:27)
[2023-08-17] MEDS ORDERED: MECLIZINE 12.5 MG TAB PO PRN (14:02)
[2023-08-17] MEDS ORDERED: ACETAMINOPHEN TAB 325 MG TAB PO PRN (14:02)
[2023-08-17] MEDS: SODIUM CHLORIDE 0.9% 1,000 ML IV SCH (15:19)
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
[2023-08-17] MEDS: DOXAZOSIN 2 MG TAB PO SCH (21:28)
[2023-08-17] MEDS: ATORVASTATIN 40 MG TAB PO SCH (21:28)
[2023-08-17] MEDS: BACLOFEN 10 MG TAB PO SCH (21:28)
[2023-08-17] MEDS: DULoxetine HCL 20 MG CAPSULE.DR PO SCH (21:28)
[2023-08-17] MEDS: oxyBUTYnin chloride 5 MG TAB PO SCH (21:28)
[2023-08-17] MEDS: NORTRIPTYLINE 25 MG CAP PO SCH (21:28)
[2023-08-17] MEDS: METOPROLOL TARTRATE 25 MG TAB PO SCH (21:28)
[2023-08-17] MEDS: EZETIMIBE 10 MG TAB PO SCH (21:28)
[2023-08-17] MEDS: ENOXAPARIN 100 MG/ML SYRINGE SQ SCH (21:29)
[2023-08-18 07:05] LABS: Appearance,Urine Cloudy (Clear); Bacteria,Urine Rare /hpf; Bilirubin,Urine Negative (Negative); Blood,Urine Negative (Negative); Color,Urine Yellow; Glucose,Urine (UA) Negative (Negative); Ketones,Urine Negative (Negative); Leukocyte Esterase,Urine Negative (Negative); Mucus,Urine Rare /hpf; Nitrite,Urine Negative (Negative); PH, Urine 7.5 (5.0-8.0); Protein,Urine Negative (Negative); RBC,Urine 1 /hpf (0-5); Squamous Epithelial Cell,Urine 1 /hpf (0-4); Urobilinogen,Urine <2.0 mg/dL (<2.0); WBC,Urine <1 /hpf (0-5)
[2023-08-18] MEDS: CALCIUM CARBONATE 500 MG CHEWABLE PO SCH (08:56)
[2023-08-18] MEDS: SENNOSIDES-DOCUSATE SODIUM 1 EACH TAB PO SCH (08:56)
[2023-08-18] MEDS: PANTOPRAZOLE 40 MG TABLET PO SCH (08:57)
[2023-08-18] MEDS: CHOLECALCIFEROL 25 MCG (1000 IU) TABLET PO SCH (08:57)
[2023-08-18] MEDS: ASCORBIC ACID 500 MG TAB PO SCH (08:57)
[2023-08-18] MEDS: LOSARTAN 25 MG TAB PO SCH (08:57)
[2023-08-18] MEDS ORDERED: NON FORMULARY DRUG (Vitamin B Complex [Vitamin B Complex] 1 EACH Capsule) PO SCH (09:00)
[2023-08-18] MEDS ORDERED: FUROSEMIDE 20 MG TAB PO SCH (09:00)
[2023-08-18 10:25] LABS: ALT 8 U/L (8-44); AST 14 U/L (13-35); Albumin 3.2 g/dL (3.8-4.9); Albumin/Globulin Ratio 1.88 Ratio (1.60-3.17); Alkaline Phosphatase 142 U/L (41-126); Blood Urea Nitrogen 5.3 mg/dL (9.0-27.0); Calcium 9.1 mg/dL (8.7-10.3); Carbon Dioxide 27.3 mmol/L (21.6-31.8); Chloride 108 mmol/L (96-109); Globulin 1.7 g/dL (1.6-3.3); Glucose 97 mg/dL (70-110); Potassium 4.1 mmol/L (3.5-5.5); Sodium 145 mmol/L (135-145); Total Bilirubin 0.6 mg/dL (0.3-1.2); Total Protein 4.9 g/dL (6.2-8.2)
[2023-08-18 11:27] LABS: Basophils # (A) 0.03 X 10*3/uL (0.00-0.10); Basophils % (A) 0.6 %; Eosinophils # (A) 0.19 X 10*3/uL (0.04-0.35); Eosinophils % (A) 3.9 %; HCT 30.4 % (37.2-46.3); HGB 9.4 g/dL (12.0-15.0); Lymphocytes # (A) 1.03 X 10*3/uL (0.90-5.00); Lymphocytes % (A) 21.4 %; MCH 28.7 pg (27.0-32.0); MCHC 30.9 g/dL (32.0-37.0); Mean Platelet Volume 11.9 FL (9.5-12.2); Monocytes # (A) 0.58 X 10*3/uL (0.20-1.00); NRBC Per 100 WBC 0 X 10*3/uL (0.00-0.01); Neutrophils # (A) 2.97 X 10*3/uL (1.80-7.70); Neutrophils % (A) 61.7 %; Platelet Count 166 X 10*3/uL (140-440); RBC 3.27 X 10*6/uL (4.10-5.20); RDW 16.1 % (11.5-14.5); WBC 4.82 X 10*3/uL (4.50-10.00)
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
[2023-08-19] MEDS: LOSARTAN 25 MG TAB PO SCH (08:27)
[2023-08-19] MEDS: SENNOSIDES-DOCUSATE SODIUM 1 EACH TAB PO SCH (08:27)
[2023-08-19] MEDS: SODIUM CHLORIDE 0.9% 1,000 ML IV SCH (08:28)
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
--- NOTE | 2023-08-19 14:03 | P.PN ---
Subjective Progress Note Date: 08/19/23 The patient is a 67-year-old female who is currently admitted to the hospital with presyncope. The patient recently underwent pacemaker implantation by her primary regulatory affairs analyst Dr. Cazares for recurrent syncope and sick sinus syndrome. The patient did not have a complete syncopal episode at the time of this admission but had similar prodrome of symptoms. The patient states she did well overnight. We did have her discontinue her Cardura and nortriptyline. No chest pain or chest pressure. No difficulty breathing. GENERAL: Well-appearing, well-nourished and in no acute distress. NECK: Supple without JVD or thyromegaly. LUNGS: Breath sounds clear to auscultation bilaterally. Respiration equal and unlabored. No wheezes, rales or rhonchi. HEART: Regular rate and rhythm without murmurs, rubs or gallops. S1 and S2 heard. EXTREMITIES: Normal range of motion, no edema. No clubbing or cyanosis. Peripheral pulses intact and strong. TELEMETRY: Sinus rhythm overnight IMPRESSION: Neurocardiogenic presyncope Sick sinus syndrome, status post permanent pacemaker Paroxysmal atrial fibrillation History of HCM COPD Coronary artery disease Hypertension PLAN: Increase losartan, twice daily dosing to avoid orthostatic drops Encourage adequate hydration Proceed with tilt table testing tomorrow I am dictating on behalf of Dr Peterson Medina's history/physical and assessment/plan. Objective - Vital Signs Vital signs: Vital Signs Temp 98.5 F 08/19/23 07:00 Pulse 60 08/19/23 07:00 Resp 16 08/19/23 00:59 BP 169/71 08/19/23 07:00 Pulse Ox 98 08/19/23 07:00 FiO2 Intake & Output 08/18/23 08/19/23 08/19/23 18:59 06:59 18:59 Intake Total 90 60 Output Total 400 200 600 Balance -310 -200 -540 Intake: Oral 90 60 Output: Urine 400 200 600 Other: Voiding Method Bedside Commode Toilet # Voids 1 - Labs CBC & Chem 7: 08/18/23 05:40 08/18/23 05:40
[2023-08-20] MEDS: SENNOSIDES-DOCUSATE SODIUM 1 EACH TAB PO SCH (09:02)
[2023-08-20] MEDS: SODIUM CHLORIDE 0.9% 500 ML 500 ML IV ONE (10:00)
[2023-08-20 10:07] VITALS: RESP 16
--- NOTE | 2023-08-20 10:56 | P.PN ---
Subjective HISTORY OF PRESENT ILLNESS: This is a 67-year-old female who was recently admitted to the hospital secondary to recurrent syncope. Patient recently underwent event monitor revealing episodes of sinus pauses and atrial fibrillation. The patient is status post [employer] dual-chamber pacemaker implantation on 08/10/[address] Cazares. Patient states that she was headed to the cardiology office for follow-up appointment when she began to feel dizzy and lightheaded and thought she was going to pass out so she sat down in her wheelchair. She does not believe that she lost consciousness at that time. Patient's vitals are currently stable. She denies any chest pain or pressure. She denies any shortness of breath. Patient is scheduled to undergo tilt table testing today PHYSICAL EXAM: VITAL SIGNS: Reviewed. GENERAL: Well-developed in no acute distress. NECK: Supple. No JVD or thyromegaly LUNGS: Respirations even and unlabored. Lungs essentially clear to auscultation bilaterally. HEART: Regular rate and rhythm. S1 and S2 heard. EXTREMITIES: Normal range of motion. No clubbing or cyanosis. Peripheral pulses intact. No lower extremity edema ASSESSMENT: Presyncope Sick sinus syndrome, status post recent pacemaker implantation Recently diagnosed atrial fibrillation, not on long-term anticoagulation outpatient secondary to recurrent syncope and risk for injury Hypertension Hyperlipidemia Questionable HOCM with LVOT obstruction, per echocardiogram in 2018 Nicotine dependence Chronic pain with long-term opioid use PLAN: Continue current cardiac medications Patient to undergo tilt table testing today If patient's recurrent syncopal episodes resolve, would recommend anticoagulation for newly diagnosed atrial fibrillation. Patient currently on therapeutic Lovenox. Will reconsider this on an outpatient basis. Further recommendations pending patient course Nurse practitioner note has been reviewed by physician. Signing provider agrees with the documented findings, assessment, and plan of care documented by CHECKER IN as a scribe. Objective - Vital Signs Vital signs: Vital Signs Temp 98.0 F 08/20/23 07:00 Pulse 58 L 08/20/23 07:00 Resp 16 08/20/23 07:00 BP 165/72 08/20/23 07:00 Pulse Ox 98 08/20/23 07:00 FiO2 Intake & Output 08/19/23 08/20/23 08/20/23 18:59 06:59 18:59 Intake Total 60 120 50 Output Total 600 1100 Balance -540 -980 50 Intake: IV 50 Oral 60 120 Output: Urine 600 1100 Other: # Voids 1 - Labs CBC & Chem 7: 08/18/23 05:40 08/18/23 05:40
[2023-08-20 11:07] LABS: Basophils # (A) 0.04 X 10*3/uL (0.00-0.10); Basophils % (A) 0.9 %; Eosinophils # (A) 0.17 X 10*3/uL (0.04-0.35); Eosinophils % (A) 3.7 %; HCT 30.8 % (37.2-46.3); HGB 9.3 g/dL (12.0-15.0); Lymphocytes # (A) 1.36 X 10*3/uL (0.90-5.00); Lymphocytes % (A) 29.4 %; MCH 27.8 pg (27.0-32.0); MCHC 30.2 g/dL (32.0-37.0); MCV 92.2 FL (80.0-97.0); Mean Platelet Volume 12.1 FL (9.5-12.2); Monocytes # (A) 0.52 X 10*3/uL (0.20-1.00); Monocytes % (A) 11.2 %; NRBC Per 100 WBC 0 X 10*3/uL (0.00-0.01); Neutrophils # (A) 2.53 X 10*3/uL (1.80-7.70); Neutrophils % (A) 54.6 %; Platelet Count 176 X 10*3/uL (140-440); RBC 3.34 X 10*6/uL (4.10-5.20); RDW 15.9 % (11.5-14.5); WBC 4.63 X 10*3/uL (4.50-10.00)
[2023-08-20 11:20] LABS: ALT 10 U/L (8-44); AST 16 U/L (13-35); Albumin 3.3 g/dL (3.8-4.9); Albumin/Globulin Ratio 1.94 Ratio (1.60-3.17); Alkaline Phosphatase 140 U/L (41-126); Blood Urea Nitrogen 8.7 mg/dL (9.0-27.0); Calcium 9.1 mg/dL (8.7-10.3); Carbon Dioxide 26.2 mmol/L (21.6-31.8); Chloride 106 mmol/L (96-109); Globulin 1.7 g/dL (1.6-3.3); Glucose 91 mg/dL (70-110); Potassium 4.2 mmol/L (3.5-5.5); Sodium 143 mmol/L (135-145); Total Bilirubin 0.4 mg/dL (0.3-1.2)
--- NOTE | 2023-08-20 12:02 | P.EPPROC ---
- EP Procedure Note Electrophysiology Procedure Note: Diagnosis Recurrent presyncope and syncope Twelve-lead EKG shows sinus mechanism normal DE narrow QRS normal ST segments normal QT interval Tilt table test per protocol Baseline blood pressure 189/86 mmHg pulse rate in the 60s Patient's blood pressure remained elevated throughout the procedure Her heart rate remained in the 60s and 70s She was laid supine at the end of the procedure Impression Elevated blood pressure readings No evidence for dysautonomia or neurocardiogenic syncope Normal heart rates Normal twelve-lead EKG
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
[2023-08-20 15:12] VITALS: BP 153/75; PULSE 76; TEMP 98.4
== END 2023-08-20 16:44 | disposition home or self-care (01) ==
LOC: EC 10:28 → 6NMEDSUR 13:27
PROVIDERS: ADMIT Internal Medicine; ATTEND Internal Medicine
DX: R55 Syncope and collapse (principal); I25.10 Atherosclerotic heart disease of native coronary artery without angina pectoris; K21.9 Gastro-esophageal reflux disease without esophagitis; E78.5 Hyperlipidemia, unspecified; I25.2 Old myocardial infarction; E03.9 Hypothyroidism, unspecified; I34.1 Nonrheumatic mitral (valve) prolapse; M54.9 Dorsalgia, unspecified; G89.4 Chronic pain syndrome; F17.210 Nicotine dependence, cigarettes, uncomplicated; I48.0 Paroxysmal atrial fibrillation; I49.5 Sick sinus syndrome; F41.9 Anxiety disorder, unspecified; F32.A Depression, unspecified; G47.00 Insomnia, unspecified; K59.00 Constipation, unspecified; E78.2 Mixed hyperlipidemia; I11.9 Hypertensive heart disease without heart failure; Z95.0 Presence of cardiac pacemaker; Z87.820 Personal history of traumatic brain injury; Z85.42 Personal history of malignant neoplasm of other parts of uterus; Z85.3 Personal history of malignant neoplasm of breast; Z79.899 Other long term (current) drug therapy; Z79.01 Long term (current) use of anticoagulants; Z88.8 Allergy status to other drugs, medicaments and biological substances; Z79.891 Long term (current) use of opiate analgesic
CPT/HCPCS: 96360; 96361 ×2; 96372 ×3; 99285; 36415; 93005; 93660; 80053 ×3; 83735; 84484; 85025 ×3; 85610; 85730; 81001; 71046; G0378 ×4; J1650 ×3

== ENCOUNTER → 2024-04-30 | Outpatient (CLI) | payer MEDICARE ==
[2024-04-30 15:03] LABS: Basophils # (A) 0.05 X 10*3/uL (0.00-0.10); Basophils % (A) 0.6 %; Eosinophils # (A) 0.48 X 10*3/uL (0.04-0.35); Eosinophils % (A) 6.2 %; HCT 40.9 % (37.2-46.3); HGB 12.8 g/dL (12.0-15.0); Lymphocytes # (A) 2.27 X 10*3/uL (0.90-5.00); Lymphocytes % (A) 29.3 %; MCH 26.8 pg (27.0-32.0); MCHC 31.3 g/dL (32.0-37.0); MCV 85.7 FL (80.0-97.0); Mean Platelet Volume 11.7 FL (9.5-12.2); Monocytes # (A) 0.62 X 10*3/uL (0.20-1.00); NRBC Per 100 WBC 0 X 10*3/uL (0.00-0.01); Neutrophils % (A) 55.6 %; Platelet Count 234 X 10*3/uL (140-440); RBC 4.77 X 10*6/uL (4.10-5.20); RDW 17.8 % (11.5-14.5); WBC 7.74 X 10*3/uL (4.50-10.00)
[2024-04-30 15:14] LABS: Appearance,Urine Clear (Clear); Bilirubin,Urine Negative (Negative); Blood,Urine Negative (Negative); Color,Urine Yellow (Yellow); Ketones,Urine Negative (Negative); Nitrite,Urine Negative (Negative); Specific Gravity,Urine 1.009 (1.001-1.030); Urobilinogen,Urine 0.2 E.U./DL
[2024-04-30 15:21] LABS: NT-Pro-B-Type Natriuretic Pept 1089 pg/mL (0-125)
[2024-04-30 15:40] LABS: ALT 12 U/L (8-44); AST 20 U/L (13-35); Albumin 3.9 g/dL (3.8-4.9); Albumin/Globulin Ratio 1.77 Ratio (1.60-3.17); Alkaline Phosphatase 117 U/L (41-126); BUN/Creat Ratio 14.83 Ratio (12.00-20.00); Blood Urea Nitrogen 8.9 mg/dL (9.0-27.0); Calcium 9.7 mg/dL (8.7-10.3); Chloride 105 mmol/L (96-109); Chol/HDL Ratio 2.49 Ratio; Creatine Kinase 31 U/L (26-186); Globulin 2.2 g/dL (1.6-3.3); Glucose 93 mg/dL (70-110); Magnesium 1.8 mg/dL (1.5-2.4); Potassium 4.6 mmol/L (3.5-5.5); Sodium 143 mmol/L (135-145); Total Bilirubin 0.5 mg/dL (0.3-1.2); Total Protein 6.1 g/dL (6.2-8.2); Uric Acid 4.3 mg/dL (2.9-7.7)
== END | disposition home or self-care (01) ==
LOC: LABWHC1 11:22
PROVIDERS: ATTEND Internal Medicine
DX: I10 Essential (primary) hypertension (principal); M47.16 Other spondylosis with myelopathy, lumbar region; E78.2 Mixed hyperlipidemia; I34.0 Nonrheumatic mitral (valve) insufficiency; M81.0 Age-related osteoporosis without current pathological fracture
CPT/HCPCS: 36415; 80053; 80061; 81003; 82306; 82550; 83036; 83735; 83880; 84443; 84550; 85025

== ENCOUNTER → 2024-05-21 | Outpatient (CLI) | payer MEDICARE ==
--- NOTE | 2024-05-21 11:50 | BD ---
EXAMINATION TYPE: Axial Bone Density DATE OF EXAM: 05/21/2024 CLINICAL HISTORY: 68 years old Female. ICD-10 CODE: M81.0 OSTEOPOROSIS , Additional History: Height: 66 Weight: 127.4 FRAX RISK QUESTIONS: Alcohol (3 or more units per day): no Family History (Parent hip fracture): no Glucocorticoids (More than 3mos): previously for 8 years, none now (Ex: prednisone, prednisolone, methylprednisolone, dexamethasone, and hydrocortisone). History of Fracture in Adulthood: yes, lt hip, femur, elbow Secondary Osteoporosis: 1. Type 1 Diabetes: no 2. Hyperthyroidism: no 3. Menopause before 45: no 4. Malnutrition: no 5. Chronic liver disease: no Rheumatoid Arthritis: yes Current Tobacco Use: yes RISK FACTORS HISTORY OF: Hip Fracture (Right/Left): Lt Hip When: 2017 Spine Fracture: yes When: 1994 History of Wrist Fracture: no Surgery to Spine/Hip(right/left)/Wrist (right/left): yes MEDICATIONS: Thyroid Medications: no Osteoporosis Medications: no EXAM MEASUREMENTS: Bone mineral densitometry was performed using the [employer] System. Bone mineral density about the R hip (g/cm2): 0.4851 T Score values are as follows: -----R Neck: -2.9 -----R Total: -4.2 Z Score values are as follows: -----R Neck: -1.2 -----R Total: -2.7 Bone mineral density has: decreased -37.5 % since study of: 05/21/2015 Bone mineral density about the L Wrist (g/cm2): 0.307 T Score values are as follows: -----Dist. R+U: -5.5 -----Prox. R+U: -5.5 -----Radius total: -6.1 Z Score values are as follows: -----Dist. R+U: -3.9 -----Prox. R+U: -4.0 -----Radius total: -4.5 Baseline Wrist Study FRAX%s: The graph provided illustrates a 34.0% chance for a major osteoporotic fx and a 16.96% chance for the hips probability for fx in 10 years time. IMPRESSION: Osteoporosis (T Score less than -2.5). There is increased fracture risk and therapy is usually indicated based on age. Re-Screen 1-2 years. NOTE: T-SCORE=SD OF THE YOUNG ADULT MEAN. [facility], , 05/21/2024 11:47 AM
--- NOTE | 2024-05-23 15:21 | MM ---
Reason for Exam: Screening (asymptomatic). Last mammogram was performed 3 year(s) and 4 month(s) ago. Patient History: Menarche at age 14. First Full-Term at age 21. Left ovary removed at age 46. Right ovary removed at age 46. Hysterectomy at age 46. Postmenopausal. Breast cancer, age 21. Endometrial cancer, age 37. Patient used Estrogen for 5 years. 1977, Lumpectomy on the Right side. Prior Study Comparison: 05/21/2015 Bilateral Diagnostic Mammogram, [facility]. 12/31/2020 Bilateral Screening Mammogram, [facility]. 01/17/2021 Right Diagnostic Mammogram, [facility]. Tissue Density: The breasts are heterogeneously dense, which may obscure small masses. Findings: Analyzed By CAD. Pacemaker generator projecting over the left chest wall. Unchanged heterogeneous calcifications on the right and a few scattered benign calcifications. Focal asymmetry central left breast at a middle depth is more pronounced and incompletely disperses on 3-D images. Further evaluation recommended. Overall Assessment: Incomplete: need additional imaging evaluation, BI-RAD 0 Management: Special View Mammogram of the left breast. Diagnostic Breast Ultrasound of the left breast. [facility] will attempt to contact patient to return for supplemental views and ultrasound. [facility], , 05/23/2024 3:17 PM. Electronically signed and approved by: Snow Berg M.D. Radiologist
== END | disposition home or self-care (01) ==
LOC: RADBDWWP 09:58
PROVIDERS: ATTEND Internal Medicine
DX: Z12.31 Encounter for screening mammogram for malignant neoplasm of breast (principal); R92.333 Mammographic heterogeneous density, bilateral breasts; M81.0 Age-related osteoporosis without current pathological fracture
CPT/HCPCS: 77063; 77067; 77080

== ENCOUNTER → 2024-06-04 | Outpatient (CLI) | payer MEDICARE ==
[2024-06-04 13:02] LABS: Partial Thromboplastin Time 33.7 sec (22.0-30.0); Prothrombin Time 11.2 sec (10.0-12.5)
== END | disposition home or self-care (01) ==
LOC: LABWHC1 11:52
PROVIDERS: ATTEND Physical Medicine & Rehabilitation Pain Medicine
DX: Z01.818 Encounter for other preprocedural examination (principal)
CPT/HCPCS: 36415; 85610; 85730

== ENCOUNTER → 2024-06-04 | Outpatient (CLI) | payer MEDICARE ==
--- NOTE | 2024-06-04 14:15 | MM ---
Reason for Exam: Additional evaluation requested from abnormal screening. Last screening mammogram was performed less than 1 month ago. Patient History: Menarche at age 14. First Full-Term at age 21. Left ovary removed at age 46. Right ovary removed at age 46. Hysterectomy at age 46. Postmenopausal. Patient has history of breast feeding. Breast cancer, age 21. Endometrial cancer, age 37. Patient used Estrogen for 5 years. 1976, Lumpectomy on the Right side. Prior Study Comparison: 12/31/2020 Bilateral Screening Mammogram, [facility]. 01/17/2021 Right Diagnostic Mammogram, [facility]. 05/21/2024 Bilateral MG 3D screening mammo w/cad, [facility]. Tissue Density: Left: The breasts are heterogeneously dense, which may obscure small masses. Findings: Analyzed By CAD. Under compression on the craniocaudal injection there is persistence of a an area of increased density. This is partially obscured margins. This area appears to disperse on the mediolateral oblique compression view. Findings are change from recent comparison studies No suspicious groups of microcalcifications, spiculated or lobular masses, architectural distortion or other secondary signs of malignancy are mammographically apparent. Overall Assessment: Incomplete: need additional imaging evaluation, BI-RAD 0 Management: Diagnostic Breast Ultrasound of the left breast. A negative mammogram report should not preclude additional follow up of suspicious palpable abnormalities. Patient should continue monthly self breast exam. A clinical breast exam by your physician is recommended on an annual basis and results should be correlated with mammographic findings. Note on Avril scores and lifetime risk: 1. A Avril score greater than 3% is considered moderate risk. If this is the case, consider specialist referral to assess eligibility for a risk reducing agent. 2. If overall lifetime risk for the development of breast cancer is 20% or higher, the patient may qualify for future screening with alternating mammogram and breast MRI. [facility], , 06/04/2024 2:10 PM. Electronically signed and approved by: Jerrod Becker D.O. Radiologis
--- NOTE | 2024-06-04 15:02 | USB ---
Reason for Exam: Additional evaluation requested from abnormal screening. Patient History: Menarche at age 14. First Full-Term at age 21. Left ovary removed at age 46. Right ovary removed at age 46. Hysterectomy at age 46. Postmenopausal. Patient has history of breast feeding. Breast cancer, age 21. Endometrial cancer, age 37. Patient used Estrogen for 5 years. 1977, Lumpectomy on the Right side. Technique: Method: Targeted. Prior Study Comparison: 12/31/2020 Bilateral Screening Mammogram, [facility]. 01/17/2021 Right Diagnostic Mammogram, [facility]. 05/21/2024 Bilateral MG 3D screening mammo w/cad, [facility]. Findings: The lower section of the breast of the left breast, the axilla of the left breast and the retroareolar of the left breast were scanned. No solid or cystic masses are identified. Normal-appearing left axillary lymph nodes are present. Management should be based on the mammographic findings. The mammographic findings appear to be interval change. Short-term follow-up recommended. Overall Assessment: Probably benign, BI-RAD 3 Management: Diagnostic Mammogram of the left breast in 3 months. A clinical breast exam by your physician is recommended on an annual basis and results should be correlated with mammographic findings. This exam should not preclude additional follow-up of suspicious palpable abnormalities. Results were given to the patient verbally at the time of exam. [facility], , 06/04/2024 2:46 PM. Electronically signed and approved by: Jerrod Becker D.O. Radiologis
== END | disposition home or self-care (01) ==
LOC: RADMAMWWP 11:35
PROVIDERS: ATTEND Internal Medicine
DX: R92.8 Other abnormal and inconclusive findings on diagnostic imaging of breast (principal); Z90.722 Acquired absence of ovaries, bilateral; Z78.0 Asymptomatic menopausal state; Z85.3 Personal history of malignant neoplasm of breast; R92.332 Mammographic heterogeneous density, left breast
CPT/HCPCS: 77065; 76642; G0279; 77061